=== PATIENT | female | born 1965 | race Caucasian/White ===

== ENCOUNTER 2016-09-28 20:33 | Emergency (ER) | payer SELFPAY ==
[2016-09-28 20:46] VITALS: BP 142/86; BMI 51.2
--- NOTE | 2016-09-28 21:01 | DR.GENAD ---
HPI - PCP Primary Care Physician: oscar - Complaint/Symptoms Chief Complaint:: pt states" i got blisters around my rt eye and in my mouth on the right side also my nose on the right side hurts Sharon been running a fever for 2 days" Self Treatment fo Chief Complaint: tylenol and motrin - Source History Provided: Patient - Mode of Arrival Mode of Arrival: Ambulatory - Timing Onset of Chief Complaint: 09/28/16 PMH - PMH Past Medical History: Yes Past Medical History: COPD, Diabetes, Hypertension Past Surgical History: Yes Surgical History: , Hysterectomy - Family History History of Family Medical Conditions: Yes Family Medical History: Diabetes Mellitus, Cancer, [place], Hypertension - Social History Type of Tobacco Use: Cigarettes Does any household member use tobacco: No Do you use any recreational Drugs:: No Lives With: Family Lives Where: Home - infectious screening In the last 2 months have you had wt loss of >10#?: NO Have you had fever, night sweats or hemotysis?: No Have you traveled outside the country in the last 6 months?: No Isolation: Standard ROS - Review of Systems Constitutional: No Symptoms Reported Eyes: No Symptoms Reported ENTM: No Symptoms Reported Respiratoy: No Symptoms Reported Cardiovascular: No Symptoms Reported Gastrointestinal/Abdominal: No Symptoms Reported Genitourinary: No Symptoms Reported Neurological: No Symptoms Reported Musculoskeletal: No Symptoms Reported Integumentary: No Symptoms Reported Hematologic/Lymphatic: No Symptoms Reported Endocrine: No Symptoms Reported Psychiatric: No Symptoms Reported All Other Systems: Reviewed and Negative PE - Vital Signs Vitals: Temperature 101.1 F Pulse Rate 122 Respiratory Rate 18 Blood Pressure [Left Calf] 91/58 Blood Pressure [Left Arm] 134/68 Blood Pressure [Right Arm] 122/63 Blood Pressure 142/86 O2 Sat by Pulse Oximetry 100 - General Limitations: No Limitations General Appearance: Alert, In No Apparent Distress - Head Head Exam: Normal Inspection, Atraumatic - Eyes Eye exam: Normal Appearance, PERRL, EOMI - ENT ENT Exam: Normal Exam, Normal Oropharynx External Ear Exam: Normal External Inspection TM/Canal Exam: Bilateral Normal Nose Exam: Normal Nose Exam Mouth Exam: Normal Inspection Throat Exam: Normal Inspection - Neck Neck Exam: Normal Inspection - Chest Chest Inspection: Normal Inspection - Respiratory Respiratory Exam: Normal Lung Sounds Bilat Respiratory Exam: Bilateral Clear to Auscultation - Cardiovascular Cardiovascular Exam: Regular Rate, Normal Rhythm - Abdominal Exam Abdominal Exam: Normal Inspection Abdominal Tenderness: negative: RUQ, RLQ, LUQ, LLQ, Epigastrium, Suprapubic, Diffuse, Mild, Moderate, Severe, Other - Extremities Extremities Exam: Normal Inspection - Back Back Exam: Normal Inspection - Neurologic Neurological Exam: Alert, Oriented X3, CN II-XII Intact - Psychiatric Psychiatric Exam: Normal Affect, Normal Mood - Skin Skin Exam: Warm, Dry, Rash (small vesicular type rash on lip lateral aspect of right eye and lower lid edema) - Diagnosis 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
[2016-09-28] MEDS ORDERED: ATIVAN INJ 2 MG VIAL IM ONE (21:30)
[2016-09-28] MEDS ORDERED: ATIVAN INJ 2 MG VIAL ONE (21:32)
== END 2016-09-28 21:51 | disposition home or self-care (01) ==
LOC: ER 20:33
DX: B00.59 Other herpesviral disease of eye (principal)
CPT/HCPCS: 87070; 87880; 96372; 99282; J2060

== ENCOUNTER 2017-01-18 04:58 | Emergency (ER) | payer OTHER, MEDICAID ==
[2017-01-18 05:12] VITALS: BMI 49.8
[2017-01-18] MEDS ORDERED: ZOFRAN INJ 4 MG VIAL IVP ONE (05:15)
[2017-01-18] MEDS ORDERED: DEMEROL INJ IVP ONE (05:15)
--- NOTE | 2017-01-18 05:17 | DR.GENAD ---
HPI - PCP Primary Care Physician: NINA - Complaint/Symptoms Chief Complaint Doctors Comments: Patient states she has multiple hernias and she has not been able to pass anything today with her stomach hurting and swelling for the past two days getting worst tonight. states her last bowel movement was yesterday and she had to take something to make them work then. states she has had a bowel obstruction in the past but did not require surgery. She denies fever, chills, nausea or vomiting, hematuria, marcellus, dysuria. states her pain is 50 of 10. states she is a patient of Dr. Granger and she smokes about a pack a day. She denies alcolhol usage. She has been vomiting most of the day. Chief Complaint:: ABDOMINAL PAIN Self Treatment fo Chief Complaint: OXYCODONE TAKEN BEFORE BED - Nurses notes reviewed Nurses Notes Review: Yes - Source History Provided: Patient - Mode of Arrival Mode of Arrival: Stretcher - Timing Onset of Chief Complaint: 01/16/17 Came on: Gradually - Duration Duration: Constant How lon Duration: Days - Severity Severity: Severe - Modifying Factors Worsens:: nothing Improves:: nothing PMH - PMH Past Medical History: Yes Past Medical History: COPD, Diabetes, Hypertension Past Surgical History: Yes Surgical History: , Hysterectomy - Family History History of Family Medical Conditions: Yes Family Medical History: Diabetes Mellitus, Cancer, [place], Hypertension - Social History Does patient currently use any type of tobacco product: Yes Have you used tobacco products in the last 12 months: Yes Type of Tobacco Use: Cigarettes Does any household member use tobacco: Yes Alcohol Use: None Do you use any recreational Drugs:: No Lives With: Family Lives Where: Home - infectious screening In the last 2 months have you had wt loss of >10#?: NO Have you had fever, night sweats or hemotysis?: No Have you traveled outside the country in the last 6 months?: No Isolation: Standard ROS - Review of Systems Constitutional: No Symptoms Reported, Loss of Appetite Eyes: No Symptoms Reported. negative: See HPI, Eye Pain, Blurred Vision, Tearing, Discharge, Photophobia, Diplopia, Other ENTM: No Symptoms Reported. negative: See HPI, Ear Pain, Ear Discharge, Pulling on Ears, Hearing Loss, Nose Pain, Nose Discharge, Epistaxis, Nose Congestion, Mouth Pain, Mouth Swelling, Loose Teeth, Drooling, Throat Pain, Throat Swelling, Ear Foreign Body Respiratoy: No Symptoms Reported Cardiovascular: No Symptoms Reported. negative: See HPI, Chest Pain, Edema, Palpitations, Syncope, Cyanosis, Skin Mottling, Other Gastrointestinal/Abdominal: No Symptoms Reported, Abdominal Pain, Constipation, Nausea, Vomiting. negative: See HPI, Diarrhea, Food Intolerance, Other Genitourinary: No Symptoms Reported. negative: See HPI, Discharge, Dysuria, Frequency, Hematuria, Pain, Bleeding, Other Neurological: No Symptoms Reported. negative: See HPI, Anxiety, Depressed, Emotional Problems, Headache, Numbness, Paresthesia, Pre-existing Deficit, Seizure, Tingling, Tremors, Weakness, Dizziness, Problems Walking, Speech Problem, Other Musculoskeletal: No Symptoms Reported Integumentary: No Symptoms Reported Hematologic/Lymphatic: No Symptoms Reported Endocrine: No Symptoms Reported Psychiatric: No Symptoms Reported PE - Vital Signs Vitals: Temperature 98.7 F Pulse Rate [Left] 108 Pulse Rate 108 Respiratory Rate 22 Blood Pressure [Left Calf] 91/58 Blood Pressure [Left Arm] 134/68 Blood Pressure [Right Arm] 129/61 Blood Pressure 178/93 O2 Sat by Pulse Oximetry 93 - General Limitations: No Limitations General Appearance: Alert, Anxious, In Distress (moderate to severe), Obese - Head Head Exam: Normal Inspection, Atraumatic, Normocephalic - Eyes Eye exam: Normal Appearance, PERRL, EOMI. negative: Scleral Icterus, Conjunctival Injection, Nystagmus, Miosis, Mydrasis, Periorbital Swelling, Periorbital Tenderness, Other - ENT ENT Exam: Normal Exam, Normal Oropharynx, Normal External Ear Exam, Mucous Membranes Moist, TM's Normal Bilaterally External Ear Exam: Normal External Inspection TM/Canal Exam: Bilateral Normal Nose Exam: Normal Nose Exam Mouth Exam: Normal Inspection Throat Exam: Normal Inspection - Neck Neck Exam: Normal Inspection, Full ROM, Trachea Midline - Chest Chest Inspection: Normal Inspection, Symmetric Chest Wall Rise - Respiratory Respiratory Exam: Normal Lung Sounds Bilat Respiratory Exam: Bilateral Clear to Auscultation - Cardiovascular Cardiovascular Exam: Regular Rate, Normal Rhythm, Normal Heart Sounds - Abdominal Exam Abdominal Exam: Normal Inspection, Normal Bowel Sounds, Distention, Tenderness, Guarding, Dimnished Bowel Sounds, Hypoactive Bowel Sounds, Hernia (umbilical hernia;non reduciable) Abdominal Tenderness: Suprapubic, Severe - Extremities Extremities Exam: Normal Inspection, Full ROM, Normal Capillary Refill. negative: Tenderness, Edema, Joint Swelling, Calf Tenderness, Other - Back Back Exam: Normal Inspection, Full ROM - Neurologic Neurological Exam: Alert, Oriented X3, CN II-XII Intact, Reflexes Normal. negative: Normal Gait (gait not tested) - Psychiatric Psychiatric Exam: Normal Affect, Normal Mood - Skin Skin Exam: Warm, Dry, Intact, Normal Color Course - Consultation Called: 06:36 Call Returned: 06:42 (Dr. Harry to accept in transfere) - Education/Counseling Education/Counseling: Patient Educated On: Treatment, Diagnosis, Needs for Follow Up ROR - Labs Reviewed Laboratory Results Reviewed?: Yes (all labs and x-ray results reviewed and discussed with patient) Result Diagrams: 01/18/17 05:37 01/18/17 05:37 Laboratory: WBC 13.9 X10^3/uL (3.6-10.0) H 01/18/17 05:37 RBC 4.65 X10^6/uL (3.5-5.4) 01/18/17 05:37 Hgb 13.8 g/dL (12.0-16.0) 01/18/17 05:37 Hct 40.7 % (36.0-47.0) 01/18/17 05:37 MCV 87.5 fL (80.0-100.0) 01/18/17 05:37 MCH 29.7 pg (27.0-34.0) 01/18/17 05:37 MCHC 34.0 g/dL (33.0-35.0) 01/18/17 05:37 RDW 15.9 % (11.6-16.5) 01/18/17 05:37 Plt Count 267 X10^3/uL (150.0-450.0) 01/18/17 05:37 MPV 8.4 fL (7.4-11.0) 01/18/17 05:37 Neut % 87.4 % (42.0-75.0) H 01/18/17 05:37 Lymph % 8.1 % (21.0-51.0) L 01/18/17 05:37 [place] % 4.2 % (0.0-13.0) 01/18/17 05:37 Eos % 0.1 % (0.9-2.9) L 01/18/17 05:37 Baso % 0.2 % (0.2-1.0) 01/18/17 05:37 Neut # 12.1 x10^3/uL (2.2-4.8) H 01/18/17 05:37 Lymph # 1.1 X10^3/uL (1.3-2.9) L 01/18/17 05:37 [place] # 0.6 x10^3/uL (0.3-0.8) 01/18/17 05:37 Eos # 0.0 x10^3/uL (0.0-0.2) 01/18/17 05:37 Baso # 0.0 X10^3/uL (0.0-0.1) 01/18/17 05:37 Absolute Nucleated RBC 0.0 /100WBC 01/18/17 05:37 Sodium 133 mmol/L (136-145) L 01/18/17 05:37 Corrected Sodium 136 mmol/L (136-145) 01/18/17 05:37 Potassium 3.4 mmol/L (3.5-5.1) L 01/18/17 05:37 Chloride 92 mmol/L (98-107) L 01/18/17 05:37 Carbon Dioxide 32.2 mmol/L (21-32) H 01/18/17 05:37 BUN 12 mg/dL (7-18) 01/18/17 05:37 Creatinine 1.01 mg/dL (0.55-1.02) 01/18/17 05:37 Est GFR (MDRD) Af Amer > 60 (>60) 01/18/17 05:37 Est GFR (MDRD) Non-Af > 60 (>60) 01/18/17 05:37 Glucose 244 mg/dL (65-99) H 01/18/17 05:37 Calcium 8.6 mg/dL (8.5-10.1) 01/18/17 05:37 Corrected Calcium 9.2 mg/dL (8.5-10.1) 01/18/17 05:37 Total Bilirubin 0.40 mg/dL (0.2-1.0) 01/18/17 05:37 AST 17 Units/L (15-37) 01/18/17 05:37 ALT 25 Units/L (12-78) 01/18/17 05:37 Alkaline Phosphatase 103 Units/L (46-116) 01/18/17 05:37 Total Protein 7.7 g/dL (6.4-8.2) 01/18/17 05:37 Albumin 3.2 g/dL (3.4-5.0) L 01/18/17 05:37 Globulin 4.5 g/dL (2.5-4.5) 01/18/17 05:37 Albumin/Globulin Ratio 0.7 Ratio (1.1-2.1) L 01/18/17 05:37 Amylase 18 Units/L (25-115) L 01/18/17 05:37 - XRAY XRAY Interpreted by: Radiologist (CT abdomen: Moderate to severe mechanical small bowel obstruction w/right paramidline infraunbilical hernia defect representin pont of transition wit incarceration and strangulation not excluded) - Diagnosis Discharge Problem: acute small bowel obstruction, Incarcerated umbilical hernia, Diabetes mellitus , ventral abdominal hernia, Abdominal pain, Mechanical small bowel obstruction - Discharge Plan Disposition: Disch/Tx to Hospital Condition: Stable - Follow ups/Referrals Follow ups/Referrals: Ciaran Granger [Primary Care Provider] - 3 days - Instructions Instructions: Smoking Cessation, Tips for Success, [id number]
[2017-01-18] MEDS ORDERED: ZOFRAN INJ 4 MG VIAL ONE (05:31)
[2017-01-18] MEDS ORDERED: NS 1000 ML 1,000 ML ONE (05:31)
[2017-01-18] MEDS ORDERED: DEMEROL INJ ONE (05:32)
[2017-01-18] MEDS ORDERED: NS 1000 ML 1,000 ML IV SCH (06:00)
[2017-01-18 06:07] LABS: BASOPHILS % (AUTO) 0.2 % (0.2-1.0); EOSINOPHILS % (AUTO) 0.1 % (0.9-2.9); HEMATOCRIT 40.7 % (36.0-47.0); HEMOGLOBIN 13.8 g/dL (12.0-16.0); LYMPHOCYTES # (AUTO) 1.1 X10^3/uL (1.3-2.9); LYMPHOCYTES % (AUTO) 8.1 % (21.0-51.0); MEAN CORPUSCULAR HEMOGLOBIN 29.7 pg (27.0-34.0); MEAN CORPUSCULAR VOLUME 87.5 fL (80.0-100.0); MEAN PLATELET VOLUME 8.4 fL (7.4-11.0); MONOCYTES # (AUTO) 0.6 x10^3/uL (0.3-0.8); MONOCYTES % (AUTO) 4.2 % (0.0-13.0); NEUTROPHILS # (AUTO) 12.1 x10^3/uL (2.2-4.8); NEUTROPHILS % (AUTO) 87.4 % (42.0-75.0); PLATELET COUNT 267 X10^3/uL (150.0-450.0); RED BLOOD COUNT 4.65 X10^6/uL (3.5-5.4); RED CELL DISTRIBUTION WIDTH 15.9 % (11.6-16.5); WHITE BLOOD COUNT 13.9 X10^3/uL (3.6-10.0)
--- NOTE | 2017-01-18 06:08 | CT ---
HISTORY: Abdominal pain, hernia, constipation, vomiting Study: CT abdomen and pelvis without contrast Comparison: July 26, 2016 Technique: Multiple axial, coronal, and sagittal CT images of the abdomen and pelvis were reviewed wi thout contrast. AEC was utilized. Findings: The lung bases are clear. Mild hepatic steatosis is noted. There is a stable left adrenal adenoma. Ri ght renal cortical nephrocalcinosis is noted from previous infarction, infection, or trauma. The silvia maryjane of the solid organs are unremarkable in their noncontrast appearance. There is no pneumoperiton eum. No mesenteric or retroperitoneal lymphadenopathy is identified. There is gastric and diffuse sma ll bowel distention with fluid filling and air-fluid levels leading to a right paramidline infraumbil ical ventral hernia with an additional more cephalad mesenteric fat containing hernia defect also not ed. There is associated surrounding fat stranding and small bowel wall thickening with the distal loo ps of small bowel decompressed most compatible with moderate to severe mechanical small bowel obstruc tion with the hernia defect felt to represent the transition point. The patient is status post hyster ectomy. IMPRESSION: Moderate to severe mechanical small bowel obstruction with a right paramidline infraumbilical hernia defect representing the point of transition with incarceration and strangulation not excluded. Reported By:
[2017-01-18 06:14] LABS: ALANINE AMINOTRANSFERASE 25 Units/L (12-78); ALBUMIN 3.2 g/dL (3.4-5.0); ALKALINE PHOSPHATASE 103 Units/L (46-116); AMYLASE 18 Units/L (25-115); ASPARTATE AMINO TRANSFERASE 17 Units/L (15-37); BLOOD UREA NITROGEN 12 mg/dL (7-18); CALCIUM 8.6 mg/dL (8.5-10.1); CARBON DIOXIDE 32.2 mmol/L (21-32); CHLORIDE 92 mmol/L (98-107); COR CA(FOR HYPOALB) 9.2 mg/dL (8.5-10.1); COR NA(FOR HYPERGLY) 136 mmol/L (136-145); CREATININE 1.01 mg/dL (0.55-1.02); SODIUM 133 mmol/L (136-145); TOTAL PROTEIN 7.7 g/dL (6.4-8.2); eGFR BLACK RACES > 60 (>60); eGFR NON BLACK RACES > 60 (>60)
[2017-01-18 06:26] VITALS: BP 129/61
[2017-01-18 11:52] LABS: LIPASE 59 Units/L (73-393)
== END 2017-01-18 07:50 | disposition hospice, inpatient (51) ==
LOC: ER 04:58
DX: K56.699 Other intestinal obstruction unspecified as to partial versus complete obstruction (principal); K42.0 Umbilical hernia with obstruction, without gangrene; E11.9 Type 2 diabetes mellitus without complications; K43.9 Ventral hernia without obstruction or gangrene; R10.84 Generalized abdominal pain
CPT/HCPCS: 36415; 74176; 80053; 82150; 83690; 85025; 96365; 96367; 96374; 96375; 99284; 99285; A4216; A4222; J2175; J2405

== ENCOUNTER 2017-07-13 00:41 | Emergency (ER) | payer OTHER, MEDICAID ==
[2017-07-13] MEDS ORDERED: ZOFRAN INJ 4 MG VIAL IVP ONE (00:51)
[2017-07-13] MEDS ORDERED: ZOFRAN INJ 4 MG VIAL ONE (00:52)
[2017-07-13 00:53] VITALS: BMI 46.5
--- NOTE | 2017-07-13 01:02 | DR.GENAD ---
HPI - PCP Primary Care Physician: NINA - HPI Comment HPI Comment: WORSE TONIGHT. PAIN SEVERE WITH DIZZINESS. DECRESE HEARING. NO DRAINAGE. NO FEVER. BALANCE IS OFF. - Complaint/Symptoms Chief Complaint Doctors Comments: LEFT EAR PAIN TIMES ONE WEEK. Chief Complaint:: PT C/O LT EAR PAIN FOR ABOUT A WEEK GOTTEN WORSE THIS WEEKEND "I GOT UP TO GO TO BATHROOM MY BALANCE IS OFF I FELL AND HIT MY HEAD I'M HAVING BURNING SHARP PAIN IN MY LT EAR" - Nurses notes reviewed Nurses Notes Review: Yes - Source History Provided: Patient - Mode of Arrival Mode of Arrival: Ambulatory - Timing Onset of Chief Complaint: 07/08/17 Came on: Suddenly - Duration Duration: Constant Duration: Days - Severity Severity: Moderate PMH - PMH Past Medical History: Yes Past Medical History: COPD, Diabetes, Hypertension Past Surgical History: Yes Surgical History: , Hysterectomy - Family History History of Family Medical Conditions: Yes Family Medical History: Diabetes Mellitus, Cancer, [place], Hypertension - Social History Do you use any recreational Drugs:: No Lives With: Family Lives Where: Home - infectious screening In the last 2 months have you had wt loss of >10#?: NO Have you had fever, night sweats or hemotysis?: No Have you traveled outside the country in the last 6 months?: No Isolation: Standard ROS - Review of Systems Constitutional: negative: Chills, Fever Eyes: No Symptoms Reported. negative: Eye Pain, Discharge ENTM: Ear Pain. negative: Hearing Loss (DECREASE HEARING.) Respiratoy: Short of Breath (ON EXERTION.). negative: Productive Cough, Wheezing, Hemoptysis Cardiovascular: negative: Chest Pain Gastrointestinal/Abdominal: negative: Abdominal Pain, Diarrhea, Nausea, Vomiting Genitourinary: negative: Dysuria, Frequency, Hematuria Neurological: Headache, Dizziness Musculoskeletal: Muscle Pain Integumentary: No Symptoms Reported Hematologic/Lymphatic: No Symptoms Reported Endocrine: negative: Flushing, Increased Thirst, Increased Urine All Other Systems: Reviewed and Negative PE - Vital Signs Vitals: Temperature 97.4 F Pulse Rate 102 Respiratory Rate 18 Blood Pressure [Left Calf] 91/58 Blood Pressure [Left Arm] 134/68 Blood Pressure [Right Arm] 129/61 Blood Pressure 122/62 O2 Sat by Pulse Oximetry 95 - General Limitations: No Limitations General Appearance: Alert - Head Head Exam: Normal Inspection - Eyes Eye exam: Normal Appearance - ENT ENT Exam: Normal External Ear Exam. negative: TM's Normal Bilaterally (TM NOT VISUALISE. EAR CANAL SWOLLEN LT EAR.) TM/Canal Exam: Left Canal Tenderness (CANAL SWOLLEN.) Nose Exam: Normal Nose Exam Mouth Exam: Normal Inspection Throat Exam: Normal Inspection - Neck Neck Exam: Trachea Midline - Chest Chest Inspection: Symmetric Chest Wall Rise - Respiratory Respiratory Exam: Normal Lung Sounds Bilat Respiratory Exam: Bilateral Clear to Auscultation - Cardiovascular Cardiovascular Exam: Regular Rate, Normal Rhythm - Abdominal Exam Abdominal Exam: Normal Bowel Sounds, Soft. negative: Tenderness - Extremities Extremities Exam: Edema (TRACE) - Back Back Exam: Normal Inspection - Neurologic Neurological Exam: Alert, Oriented X3 - Psychiatric Psychiatric Exam: Anxious - Skin Skin Exam: Erythema MDM - Differential Diagnosis Differential Diagnosis: LT EARACHE, OTITIS MEDIA, OTITIS EXTERNAL. SINUSITIS Course - Treatment Treatment: SEE ORDERS. - Education/Counseling Education/Counseling: Patient, Education Educated On: Treatment, Diagnosis, Needs for Follow Up ROR - XRAY XRAY Interpreted by: Radiologist XRAY Findings: REPORT DISCUSS WITH PATIENT. - Diagnosis Discharge Problem: Ear pain, left - Discharge Plan Condition: Stable Prescriptions: Amoxicillin & Pot Clavulanate [AUGMENTIN XR tab 1000/62.5mg *] 1 tab PO BID #20 tab Tramadol HCl 50 mg PO Q8H #15 tablet - Follow ups/Referrals Follow ups/Referrals: Ciaran Granger [Primary Care Provider] - 07/13/17 MISTY ARMANDO [REFERRING] - 07/13/17 - Instructions Instructions: Earache, Adult Additional Instructions: RETURN TO ED IF WORSE.
[2017-07-13] MEDS ORDERED: TORADOL 30 MG VIAL IVP ONE (01:09)
[2017-07-13] MEDS ORDERED: TORADOL 30 MG VIAL ONE (01:10)
[2017-07-13] MEDS ORDERED: PHENERGAN INJ 25 MG IM ONE (01:20)
[2017-07-13] MEDS ORDERED: PHENERGAN INJ 25 MG ONE (01:21)
[2017-07-13] MEDS ORDERED: CORTISPORIN OTIC SUSP ONE (01:29)
[2017-07-13] MEDS ORDERED: CORTISPORIN OTIC SUSP AFF EAR ONE (01:30)
[2017-07-13] MEDS ORDERED: SOLU-Medrol 125 MG VIAL IVP ONE (01:48)
[2017-07-13] MEDS ORDERED: SOLU-Medrol 125 MG VIAL ONE (01:50)
[2017-07-13] MEDS ORDERED: DILAUDID INJ IVP PRN (02:01)
[2017-07-13] MEDS ORDERED: DILAUDID INJ ONE (02:03)
--- NOTE | 2017-07-13 02:24 | CT ---
CT head without contrast Indication: Left ear pain and dizziness Comparison: 03/11/2014 CT Technique: Axial images from the skullbase to the vertex without contrast. Coronal and sagittal refor mats provided. Findings: There is no acute intracranial hemorrhage, mass or mass effect. No extra-axial fluid collec tion or abnormal area of hypoattenuation to suggest infarction. Mild atrophic change noted. Empty wen la turcica again noted. Review of bone windows shows no destructive osseous lesion. Paranasal sinuses and mastoid air cells are clear. Impression: 1. No acute intracranial hemorrhage 2. Empty sella turcica again noted. Reported By:
[2017-07-13] MEDS ORDERED: ROCEPHIN 1 GM IV PREMIX 1 GM/50 ML IV.SOLN. IV ONE ×2 (02:28→02:33)
[2017-07-13 03:16] VITALS: BP 128/76
== END 2017-07-13 03:17 | disposition home or self-care (01) ==
LOC: ER 00:41
DX: H92.02 Otalgia, left ear (principal); E23.6 Other disorders of pituitary gland
CPT/HCPCS: 70450; 96365; 96372; 96374; 96375; 99282; 99283; A4222; J0696; J1170; J1885; J2405; J2550; J2930

== ENCOUNTER 2019-04-07 11:07 | Inpatient (IN) ==
[2019-04-07] MEDS ORDERED: NARCAN INJ ONE (11:17)
[2019-04-07] MEDS ORDERED: NS 500 ML IV 500 ML IV ONE ×2 (11:21→11:23)
[2019-04-07] MEDS ORDERED: NARCAN INJ IVP ONE (11:22)
[2019-04-07 11:28] VITALS: BMI 49.8
--- NOTE | 2019-04-07 11:37 | DR.EXTPAIN ---
HPI Time seen Time Seen by Provider: 04/07/19 11:31 PCP Primary Care Physician: DR. WOOD HPI Comment HPI Comment: PATIENT IS 53YR OLD HERE VIA EMS WITH AMS AND PASSIBLE OVERDOSE WITH LORTAB. 40 TABS OF HYDROCODNE MISSING FROM HER BOTTLE. PATIENT SLEEPY IN ER AND RESPOND TO PAINFULL STIMULI. ALERT SLIGHTLY WITH IV NARCAN. SHE IS REPORT GENERALIZED PAIN AFTER HELPING MOM WITH WORK AND ALSO HAVING ARTHRITS PAIN. SHE TOOK ONE LORTAB, ONE XANAX AND ONE SYMBALTA TODAY. NO FEVER OR DYSURIA. HAVING HEADACHE. PAIN 10/. Complaint/Symptoms Chief Complaint Doctor Comments: DRUG OVERDOSE AND AMS. Chief Complaint:: [facility] STATES THEY WERE DISPATCHED TO PATIENT'S RESIDEN CE FOR POSSIBLE OD AND GENERALIZED PAIN. PATIENT STATES SHE WAS HELPING HER MOM DO SOME WORK ON THURSDAY AND THINKS SHE MAY HAVE OVER DONE IT. STATES SHE MAY BE HAVING AN ARHTRITIS FLARE UP. STATES SHE IS HURTING ALL OVER. PER EMS, 40 HYDROCODONE ARE MISSING OUT OF PATIENT'S MEDICIATION BOTTLES. PATIENT STATES SHE ONLY TOOK 1 HYDROCODONE TODAY ALONG WITH XANAX X1 AND CYMBALTA X1. STATES SHE DROPPED THE OTHERS ON THE FLOOR. Nurses notes reviewed Nurses Notes Review: Yes Source History Provided: Patient and EMS Mode of arrival Mode of Arrival: EMS Timing Onset of Chief Complaint: 04/07/19 Context History of: Arthritis Associated signs and symptoms Associated Signs and Symptoms: Weakness, Pain, Abdominal Pain, Headache and Shortness of Breath PMH PMH Past Medical History: Yes Past Medical History: Arthritis, COPD, Diabetes, Dyslipidemia, GERD, Hypertension and Sleep Apnea Past Surgical History: Yes Surgical History: and Hysterectomy Family History History of Family Medical Conditions: Yes Family Medical History: Diabetes Mellitus, Cancer, DC, Coronary Artery Disease and Hypertension Social History Does patient currently use any type of tobacco product: Yes Have you used tobacco products in the last 12 months: Yes Type of Tobacco Use: Cigarettes How many years tobacco product used: 30 Does any household member use tobacco: No Alcohol Use: None Do you use any recreational Drugs:: No Lives With: Mom Lives Where: Home infectious screening In the last 2 months have you had wt loss of >10#?: NO Have you had fever, night sweats or hemotysis?: No Have you traveled outside the country in the last 6 months?: No Isolation: Standard ROS Review of Systems Constitutional: See HPI and Weakness; negative Fever Eyes: No Symptoms Reported and See HPI ENTM: No Symptoms Reported and See HPI Respiratoy: See HPI and Short of Breath; negative Moist Cough and Wheezing Cardiovascular: See HPI and Palpitations Gastrointestinal/Abdominal: See HPI and Abdominal Pain Genitourinary: No Symptoms Reported and See HPI; negative Dysuria, Frequency and Hematuria Neurological: See HPI, Headache and Weakness; negative Dizziness Musculoskeletal: See HPI, Back Pain and Muscle Pain Integumentary: No Symptoms Reported and See HPI; negative Change in Color, Rash and Juandice Hematologic/Lymphatic: No Symptoms Reported and See HPI; negative Easy Bleeding, Easy Bruising and Swollen Glands Endocrine: No Symptoms Reported and See HPI; negative Increased Thirst, Increased Urine and Decreased Appetite Psychiatric: See HPI and Depression All Other Systems: Reviewed and Negative PE Vital Signs Vitals: Temperature 98.7 F Pulse Rate 120 Respiratory Rate 25 Blood Pressure [Left Calf] 91/58 Blood Pressure [Left Arm] 142/82 Blood Pressure 148/66 O2 Sat by Pulse Oximetry 99 General Limitations: Altered Mental Status General Appearance: In No Apparent Distress and Obtunded Head Head Exam: Normal Inspection and Atraumatic Eyes Eye exam: Normal Appearance and PERRL; negative Scleral Icterus and Conjunctival Injection ENT ENT Exam: Normal Exam, Normal Oropharynx, Normal External Ear Exam and TM's Normal Bilaterally Neck Neck Exam: Normal Inspection and Trachea Midline; negative Tenderness and Lymphadenopathy Chest Chest Inspection: Normal Inspection, Symmetric Chest Wall Rise and Rash; negative Tenderness Respiratory Respiratory Exam: Normal Lung Sounds Bilat; negative Accessory Muscle Use, Chest Wall Tenderness and Respiratory Distress Respiratory Exam: Bilateral: Rhonchi and Lower: Rhonchi Cardiovascular Cardiovascular Exam: Tachycardia and Normal Heart Sounds; negative Systolic Murmur and Diastolic Murmur Abdominal Exam Abdominal Exam: Normal Bowel Sounds, Soft and Tenderness Abdominal Tenderness: Diffuse and Mild Extremities Extremities Exam: Normal Inspection and Normal Capillary Refill; negative Tenderness and Calf Tenderness Lower Extremities Gait Exam: Not Tested/Not Observed Back Back Exam: Tenderness and Paraspinal Tenderness (LOWER BACK.) Neurological Neurological Exam: CN II-XII Intact; negative Alert (SLEEPY.), Oriented X3 (ORIENTED TO PERSON.) and Motor Sensory Deficit Psychiatric Psychiatric Exam: Depressed Skin Skin Exam: Dry MDM Differential Diagnosis Differential Diagnosis: Other (DRUG OVERDOSE, AMS. GENERALIZE PAIN) COURSE Treatment Treatment: SEE ORDERS. NARCAN 0.4MG IV. PATIENT MORE ALERT. NS IV. Education/Counseling Education/Counseling: Patient Educated On: Diagnosis ROR Labs Reviewed Laboratory Results Reviewed?: Yes Result Diagrams: 04/12/19 04:26 04/12/19 04:26 Laboratory: 04/07/19 17:33 Blood Blood Culture - Final 04/07/19 17:33 Blood Blood Culture - Final WBC 35.4 X10^3/uL (3.6-10.0) H* 04/07/19 11:50 RBC 3.95 X10^6/uL (3.5-5.4) 04/07/19 11:50 Hgb 11.6 g/dL (12.0-16.0) L 04/07/19 11:50 Hct 35.6 % (36.0-47.0) L 04/07/19 11:50 MCV 90.2 fL (80.0-100.0) 04/07/19 11:50 MCH 29.3 pg (27.0-34.0) 04/07/19 11:50 MCHC 32.5 g/dL (33.0-35.0) L 04/07/19 11:50 RDW 16.9 % (11.6-16.5) H 04/07/19 11:50 Plt Count 283 X10^3/uL (150.0-450.0) 04/07/19 11:50 Plt Count Comment Adequate (ADEQUATE) 04/07/19 11:50 MPV 8.3 fL (7.4-11.0) 04/07/19 11:50 Neut % (Auto) 90.9 % (42.0-75.0) H 04/07/19 11:50 Lymph % (Auto) 5.4 % (21.0-51.0) L 04/07/19 11:50 [place] % (Auto) 3.3 % (0.0-13.0) 04/07/19 11:50 Eos % (Auto) 0.1 % (0.9-2.9) L 04/07/19 11:50 Baso % (Auto) 0.3 % (0.2-1.0) 04/07/19 11:50 Neut # (Auto) 32.2 x10^3/uL (2.2-4.8) H 04/07/19 11:50 Lymph # (Auto) 1.9 X10^3/uL (1.3-2.9) 04/07/19 11:50 [place] # (Auto) 1.2 x10^3/uL (0.3-0.8) H 04/07/19 11:50 Eos # (Auto) 0.0 x10^3/uL (0.0-0.2) 04/07/19 11:50 Baso # (Auto) 0.1 X10^3/uL (0.0-0.1) 04/07/19 11:50 Absolute Nucleated RBC 0.0 /100WBC 04/07/19 11:50 Total Counted 100 04/07/19 11:50 Neutrophils % (Manual) 78 % (39-76) H 04/07/19 11:50 Band Neutrophils % 5 % (0-10) 04/07/19 11:50 Lymphocytes % (Manual) 14 % (13-43) 04/07/19 11:50 Monocytes % (Manual) 3 % (4-9) L 04/07/19 11:50 Plt Morphology Comment Normal (NORMAL) 04/07/19 11:50 RBC Morphology Normal (NORMAL) 04/07/19 11:50 PT 14.6 SECONDS (11.8-14.3) 04/07/19 16:16 INR Target Range - 04/07/19 16:16 INR 1.18 (0.8-1.3) 04/07/19 16:16 Sodium 136 mmol/L (136-145) 04/07/19 16:07 Corrected Sodium 136 mmol/L (136-145) 04/07/19 16:07 Potassium 4.3 mmol/L (3.5-5.1) 04/07/19 16:07 Chloride 97 mmol/L (98-107) L 04/07/19 16:07 Carbon Dioxide 33.6 mmol/L (21-32) H 04/07/19 16:07 BUN 43 mg/dL (7-18) H 04/07/19 16:07 Creatinine 1.25 mg/dL (0.55-1.02) H 04/07/19 16:07 Est GFR (MDRD) Af Amer 57 (>60) L 04/07/19 16:07 Est GFR (MDRD) Non-Af 47 (>60) L 04/07/19 16:07 Glucose 116 mg/dL (65-99) H 04/07/19 16:07 Calcium 8.7 mg/dL (8.5-10.1) 04/07/19 16:07 Corrected Calcium 9.7 mg/dL (8.5-10.1) 04/07/19 16:07 Magnesium 2.0 mg/dL (1.7-2.9) 04/07/19 11:50 Total Bilirubin 0.30 mg/dL (0.2-1.0) 04/07/19 16:07 AST 33 Units/L (15-37) 04/07/19 16:07 ALT 24 Units/L (12-78) 04/07/19 16:07 Alkaline Phosphatase 83 Units/L (46-116) 04/07/19 16:07 Creatine Kinase 476 Units/L (26-192) H 04/07/19 11:50 CK-MB (CK-2) 5.9 ng/mL (0-4.0) H* 04/07/19 11:50 CK/CKMB % Calc 1.2 % (<4) 04/07/19 11:50 Troponin I < 0.02 ng/mL (0-1.5) 04/07/19 11:50 Total Protein 7.8 g/dL (6.4-8.2) 04/07/19 16:07 Albumin 2.8 g/dL (3.4-5.0) L 04/07/19 16:07 Globulin 5.0 g/dL (2.5-4.5) H 04/07/19 16:07 Albumin/Globulin Ratio 0.6 Ratio (1.1-2.1) L 04/07/19 16:07 Specimen Type Catherized urine 04/07/19 14:13 Urine Color Yellow (YELLOW) 04/07/19 14:13 Urine Appearance Cloudy (CLEAR) 04/07/19 14:13 Urine pH 5.0 (5.0 - 8.0) 04/07/19 14:13 Ur Specific [place] 1.020 (1.000-1.030) 04/07/19 14:13 Urine Protein 2+ (NEGATIVE) 04/07/19 14:13 Urine Glucose (UA) Negative (NEGATIVE) 04/07/19 14:13 Urine Ketones Negative (NEGATIVE) 04/07/19 14:13 Urine Occult Blood 1+ (NEGATIVE) 04/07/19 14:13 Urine Nitrite Negative (NEGATIVE) 04/07/19 14:13 Urine Bilirubin Negative (NEGATIVE) 04/07/19 14:13 Urine Urobilinogen Normal (NORMAL) 04/07/19 14:13 Ur Leukocyte Esterase Negative (NEGATIVE) 04/07/19 14:13 Urine RBC 0-2 /HPF (0-3) 04/07/19 14:13 Urine WBC None seen /HPF (0-5) 04/07/19 14:13 Ur Squamous Epith Cells Rare /HPF (NEGATIVE) 04/07/19 14:13 Amorphous Sediment 1+ /HPF (NEGATIVE) 04/07/19 14:13 Urine Bacteria Negative /HPF (NEGATIVE) 04/07/19 14:13 Urine Mucus Few /HPF (NEGATIVE) 04/07/19 14:13 Ur Culture Indicated? No/not indicated 04/07/19 14:13 Salicylates 4.1 mg/dL (2.8-20) 04/07/19 11:50 Urine Opiates Screen Positive (NEG=<300) A 04/07/19 14:13 Urine Methadone Screen Negative (NEG=<300) 04/07/19 14:13 Acetaminophen 0.0 ug/mL (10-30) L 04/07/19 11:50 Ur Barbiturates Screen Negative (NEG=<200) 04/07/19 14:13 Ur Phencyclidine Scrn Negative (NEG=<25) 04/07/19 14:13 Ur Amphetamines Screen Positive (NEG=<1000) A 04/07/19 14:13 U Benzodiazepines Scrn Positive (NEG=<200) A 04/07/19 14:13 Urine Cocaine Screen Negative (NEG=<300) 04/07/19 14:13 U Marijuana (THC) Screen Positive (NEG=<50) A 04/07/19 14:13 Ethyl Alcohol mg/dL < 3 mg/dL (0-19.9) 04/07/19 11:50 XRAY XRAY Interpreted by: Radiologist XRAY Findings: REPORT NOTED AND DISCUSSED WITH PATIENT. Opioid Opioid Risk Tool Personal Hx of Substance Abuse: Prescription Drugs Age (Christiano box if 16-45): No History of Preadolescent Sexual Abuse: No Psychological Disease: Depression Total: 0 Total Score Risk Category: Low Risk Copyright: Babatunde GAMBOA predicting aberrant behaviors Diagnosis Discharge Problem: Generalized weakness AMS (altered mental status) Qualifiers: Altered mental status type: transient alteration of awareness Qualified Code(s): R40.4 - Transient alteration of awareness Acute drug overdose Qualifiers: Encounter type: initial encounter Injury intent: accidental or unintentional Qualified Code(s): T50.901A - Poisoning by unspecified drugs, medicaments and biological substances, accidental (unintentional), initial encounter Leukocytosis Qualifiers: Leukocytosis type: unspecified Qualified Code(s): D72.829 - Elevated white blood cell count, unspecified Instructions Instructions: Confusion Drug Overdose Leukocytosis Hypertension, [id number] Type 1 Diabetes Mellitus, Self Care, Adult, [id number] Forms: Patient Portal
[2019-04-07 11:59] LABS: BASOPHILS # (AUTO) 0.1 X10^3/uL (0.0-0.1); BASOPHILS % (AUTO) 0.3 % (0.2-1.0); EOSINOPHILS % (AUTO) 0.1 % (0.9-2.9); HEMATOCRIT 35.6 % (36.0-47.0); HEMOGLOBIN 11.6 g/dL (12.0-16.0); LYMPHOCYTES # (AUTO) 1.9 X10^3/uL (1.3-2.9); LYMPHOCYTES % (AUTO) 5.4 % (21.0-51.0); MEAN CORPUSCULAR HEMOGLOBIN 29.3 pg (27.0-34.0); MEAN CORPUSCULAR HGB CONC 32.5 g/dL (33.0-35.0); MEAN CORPUSCULAR VOLUME 90.2 fL (80.0-100.0); MEAN PLATELET VOLUME 8.3 fL (7.4-11.0); MONOCYTES # (AUTO) 1.2 x10^3/uL (0.3-0.8); MONOCYTES % (AUTO) 3.3 % (0.0-13.0); NEUTROPHILS # (AUTO) 32.2 x10^3/uL (2.2-4.8); NEUTROPHILS % (AUTO) 90.9 % (42.0-75.0); PLATELET COUNT 283 X10^3/uL (150.0-450.0); RED BLOOD COUNT 3.95 X10^6/uL (3.5-5.4); RED CELL DISTRIBUTION WIDTH 16.9 % (11.6-16.5)
[2019-04-07 12:11] LABS: WHITE BLOOD COUNT 35.4 X10^3/uL (3.6-10.0)
[2019-04-07 12:12] LABS: BLOOD UREA NITROGEN 50 mg/dL (7-18); CALCIUM 8.9 mg/dL (8.5-10.1); CARBON DIOXIDE 30.6 mmol/L (21-32); CHLORIDE 97 mmol/L (98-107); COR NA(FOR HYPERGLY) 136 mmol/L (136-145); CREATININE 1.81 mg/dL (0.55-1.02); SODIUM 135 mmol/L (136-145); TROPONIN I < 0.02 ng/mL (0-1.5); eGFR NON BLACK RACES 31 (>60)
[2019-04-07 12:14] LABS: BAND NEUTROPHILS % 5 % (0-10); PLATELET MORPHOLOGY COMMENT NORMAL (NORMAL)
[2019-04-07 12:15] LABS: SALICYLATE 4.1 mg/dL (2.8-20)
[2019-04-07 12:35] LABS: ALANINE AMINOTRANSFERASE 22 Units/L (12-78); ALBUMIN 2.8 g/dL (3.4-5.0); ALKALINE PHOSPHATASE 79 Units/L (46-116); ASPARTATE AMINO TRANSFERASE 30 Units/L (15-37); BLOOD ALCOHOL < 3 mg/dL (0-19.9); CKMB % 1.2 % (<4); COR CA(FOR HYPOALB) 9.9 mg/dL (8.5-10.1); CREATINE KINASE 476 Units/L (26-192); TOTAL PROTEIN 7.5 g/dL (6.4-8.2)
[2019-04-07 12:37] LABS: CREATINE KINASE MB 5.9 ng/mL (0-4.0)
[2019-04-07 14:22] LABS: BILIRUBIN,URINE NEGATIVE (NEGATIVE); BLOOD/HEMOGLOBIN,URINE 1+ (NEGATIVE); GLUCOSE, URINE NEGATIVE (NEGATIVE); KETONES,URINE NEGATIVE (NEGATIVE); LEUKOCYTE ESTERASE ,URINE NEGATIVE (NEGATIVE); NITRITES,URINE NEGATIVE (NEGATIVE); PROTEIN,URINE 2+ (NEGATIVE); UROBILINOGEN,URINE NORMAL (NORMAL)
[2019-04-07 14:36] LABS: APPEARANCE,URINE CLOUDY (CLEAR); COLOR,URINE YELLOW (YELLOW)
[2019-04-07 14:37] LABS: AMORPHOUS SEDIMENT,UR 1+ /HPF (NEGATIVE); BACTERIA,URINE NEGATIVE /HPF (NEGATIVE); MUCUS,URINE FEW /HPF (NEGATIVE); RBC,URINE 0-2 /HPF (0-3); SQUAMOUS EPITHELIAL CELL,UR RARE /HPF (NEGATIVE)
--- NOTE | 2019-04-07 15:39 | CT ---
HISTORYAMSSTUDYBRAIN W/O [id number] images of the head were obtained without IV contrast. Automatic exposure control was utilized.FINDINGSThere is generalized age-appropriate cortical involution with concomitant ventricular and sulcal enlargement. Chronically empty sella is again noted. There is no acute bleed, mass effect, or abnormal extra-axial collection. No acute osseous abnormality. The paranasal sinuses and mastoid air cells are grossly clear.IMPRESSIONNo acute intracranial abnormality.Electronically signed by: KIN MEYERS (Apr 07, 2019 15:38:11)
--- NOTE | 2019-04-07 15:45 | CT ---
HISTORYABD PAINSTUDYABDOMEN/PELVIS W/O [id number] axial images of the abdomen and pelvis were obtained from the lung bases to the pubic symphysis without the administration of IV contrast. Dose reduction techniques including Automated Exposure Control (AEC) and adjustment of mA and kV were utilized.FINDINGSThere is small to moderate layering right-sided pleural effusion. There is subsegmental atelectasis in both lung bases. No acute osseous abnormality.The study is limited by suboptimal patient positioning, resulting in exclusion of a portion of the right-sided abdominal wall from the field of view. Additionally, evaluation of the abdominal pelvic viscera is markedly limited without contrast and there is beam hardening artifact within the upper abdomen related to the patient's arms. Accounting for this, the liver, gallbladder, spleen, stomach, pancreas, adrenals, and kidneys demonstrate no significant abnormality. There is a stable left adrenal nodule suggestive for an adenoma and a stable small cortical calcification of the right kidney.There is bowel containing large lower abdominal wall hernia. No marked thickening or dilatation of the lower GI tract is identified. There is aortoiliac atherosclerosis, without aneurysm. The urinary bladder is collapsed around a Tovar catheter. The uterus is absent. The rectum is unremarkable.IMPRESSIONNo acute abnormality within the abdomen or pelvis, within noncontrast limitations as above.Small to moderate right-sided pleural effusion. Subsegmental atelectasis of the lung bases.Chronic findings as above.Electronically signed by: KIN MEYERS (Apr 07, 2019 15:44:20)
--- NOTE | 2019-04-07 15:51 | RAD ---
HISTORYCHEST PAINSTUDYCHEST, 1 [id number] trachea is shifted to the right. Heart size enlarged. Dense consolidation within the central right upper midlung with right lung volume loss. Patchy opacities noted within both lung bases. Small to moderate right-sided pleural effusion has developed. No pneumothorax. No acute osseous abnormality.IMPRESSIONRight lung volume loss with dense consolidation within central right upper and middle lobe with development of a small to moderate right-sided pleural effusion may represent pneumonia with postobstructive atelectasis; however, is suspicious for a central neoplasm with postobstructive atelectasis. Correlation with CT examination necessitating IV contrast given the concern for central hilar/bronchogenic malignancy is recommended.Electronically signed by: MIK DUVALL (Apr 07, 2019 15:49:58)
[2019-04-07 16:27] LABS: ALBUMIN 2.8 g/dL (3.4-5.0); CALCIUM 8.7 mg/dL (8.5-10.1); CARBON DIOXIDE 33.6 mmol/L (21-32); COR CA(FOR HYPOALB) 9.7 mg/dL (8.5-10.1); CREATININE 1.25 mg/dL (0.55-1.02); TOTAL PROTEIN 7.8 g/dL (6.4-8.2)
[2019-04-07] MEDS ORDERED: SALINE 3% 15 ML NEB TX ONE (17:23)
[2019-04-07] MEDS ORDERED: SALINE 3% 15 ML NEB TX NEB ONE (17:51)
[2019-04-07] MEDS ORDERED: XOPENEX 1.25 MG/3 ML NEBULE NEB PRN (18:28)
[2019-04-07] MEDS ORDERED: NS 1000 ML 1,000 ML ONE (18:29)
[2019-04-07] MEDS: NS 1000 ML 1,000 ML IV SCH (18:30)
[2019-04-07] MEDS: PEPCID TAB 20 MG PO SCH (20:20)
[2019-04-07] MEDS: LIPITOR TAB 10 MG PO SCH (20:30)
[2019-04-07] MEDS ORDERED: PROCHLORPERAZINE MALEATE 5 MG PO SCH (21:00)
[2019-04-07 23:21] LABS: CKMB % 0.8 % (<4); CREATINE KINASE 456 Units/L (26-192); CREATINE KINASE MB 3.7 ng/mL (0-4.0); TROPONIN I < 0.02 ng/mL (0-1.5)
[2019-04-08] MEDS ORDERED: TYLENOL 325 MG TAB PO ONE (01:16)
[2019-04-08] MEDS: TYLENOL 325 MG TAB PO PRN ×2 (01:30→07:47)
[2019-04-08 06:11] LABS: BASOPHILS % (AUTO) 0.2 % (0.2-1.0); EOSINOPHILS % (AUTO) 0.2 % (0.9-2.9); HEMATOCRIT 33.5 % (36.0-47.0); HEMOGLOBIN 10.9 g/dL (12.0-16.0); LYMPHOCYTES % (AUTO) 9.9 % (21.0-51.0); MEAN CORPUSCULAR HEMOGLOBIN 29.3 pg (27.0-34.0); MEAN CORPUSCULAR HGB CONC 32.4 g/dL (33.0-35.0); MEAN CORPUSCULAR VOLUME 90.4 fL (80.0-100.0); MEAN PLATELET VOLUME 8.5 fL (7.4-11.0); MONOCYTES # (AUTO) 0.9 x10^3/uL (0.3-0.8); MONOCYTES % (AUTO) 4.7 % (0.0-13.0); NEUTROPHILS # (AUTO) 17.2 x10^3/uL (2.2-4.8); PLATELET COUNT 254 X10^3/uL (150.0-450.0); RED CELL DISTRIBUTION WIDTH 16.9 % (11.6-16.5); WHITE BLOOD COUNT 20.2 X10^3/uL (3.6-10.0)
[2019-04-08 06:25] LABS: ALANINE AMINOTRANSFERASE 20 Units/L (12-78); ALBUMIN 2.5 g/dL (3.4-5.0); ALKALINE PHOSPHATASE 69 Units/L (46-116); ASPARTATE AMINO TRANSFERASE 31 Units/L (15-37); BLOOD UREA NITROGEN 22 mg/dL (7-18); CALCIUM 8.6 mg/dL (8.5-10.1); CARBON DIOXIDE 32.4 mmol/L (21-32); CHLORIDE 99 mmol/L (98-107); CKMB % 0.6 % (<4); COR CA(FOR HYPOALB) 9.8 mg/dL (8.5-10.1); CREATINE KINASE 380 Units/L (26-192); CREATINE KINASE MB 2.2 ng/mL (0-4.0); CREATININE 0.65 mg/dL (0.55-1.02); SODIUM 137 mmol/L (136-145); TOTAL PROTEIN 7.2 g/dL (6.4-8.2); TROPONIN I < 0.02 ng/mL (0-1.5); eGFR NON BLACK RACES > 60 (>60)
--- NOTE | 2019-04-08 08:24 | DR.H&P ---
H&P - History & Physical for Day of: H&P Date: 04/07/19 - Chief Complaint Chief Complaint: [facility] STATES THEY WERE DISPATCHED TO PATIENT'S RESIDENCE FOR POSSIBLE OD AND GENERALIZED PAIN. PATIENT STATES SHE WAS HELPING HER MOM DO SOME WORK ON THURSDAY AND THINKS SHE MAY HAVE OVER DONE IT. STATES SHE MAY BE HAVING AN ARHTRITIS FLARE UP. STATES SHE IS HURTING ALL OVER. PER EMS, 40 HYDROCODONE ARE MISSING OUT OF PATIENT'S MEDICIATION BOTTLES. PATIENT STATES SHE ONLY TOOK 1 HYDROCODONE TODAY ALONG WITH XANAX X1 AND CYMBALTA X1. STATES SHE DROPPED THE OTHERS ON THE FLOOR. - History of Present Illness History of Present Illness: 53 WF ER ADMISSION WITH AMS DUE TO SUSPECTED ACCIDENTAL MEDICATION OVERDOSE. PT ADMITTED TO ICU FOR TREATMENT OF ACUTE ILLNESS, PNEUMONIA. - Past Medical History Past Medical History: Hypertension, Dyslipidemia, Diabetes, COPD, GERD, Arthritis, Sleep Apnea Additional Medical History: Rheumatoid Arthritis, Diverticulitis, Intestinal fistula, Tobacco abuse, Obesity, Drug Dependency - Past Surgical History Surgical History: , Hysterectomy Additional Surgical History: Tubal Ligation, Ovarian Cyst Removal, Hernia repair, Abdominal wall sinus - debridement - Family History Family Medical History: Diabetes Mellitus, Coronary Artery Disease, Hypertension - Social History Does patient currently use any type of tobacco product: Yes Have you used tobacco products in the last 12 months: Yes Type of Tobacco Use: Cigarettes How many years tobacco product used: 30 Does any household member use tobacco: No Alcohol Use: None Drug Use: Prescription Drugs, Marijuana - Medications Home Medications: Sulfa (Sulfonamide Antibiotics) Allergy (Verified 02/11/19 10:56) codeine Adverse Reaction (Verified 02/11/19 10:56) CONTINUE taking the following medications hydrocodone-acetaminophen 1 tab PO BID PRN 04/07/19 [History] meloxicam 15 mg PO DAILY 04/07/19 [History] prochlorperazine maleate 5 mg PO BID 04/07/19 [History] sertraline 25 mg PO DAILY 04/07/19 [History] - Review of Systems Constitutional: Weakness Eyes: No Symptoms Reported ENT: No Symptoms Reported Cardiovascular: No Symptoms Reported Gastrointestinal: Nausea Musculoskeletal: Back Pain Skin: No Symptoms Reported Neurological: Weakness - Physical Exam Vital Signs: Temperature 99.1 F Pulse Rate [Apical] 115 Pulse Rate 87 Respiratory Rate 26 Blood Pressure [Right Arm] 111/65 Blood Pressure [Left Calf] 91/58 Blood Pressure [Left Arm] 142/82 Blood Pressure 117/67 O2 Sat by Pulse Oximetry 95 Oriented: Person Eyes: Normal Ear: Normal Nose: Normal Throat: Normal Respiratory: Rhonchi Throughout, Wheezes Throughout Cardiovascular: Murmur : Normal Auscultation: Bowel Sounds: Normal Tenderness: Normal Skin: Normal Musculoskeletal: Normal Psychiatric: Normal Mood Description: Anxious Affect: Anxious Speech Pattern: Appropriate - Assessment/Plan (1) AMS (altered mental status) Status: Acute Plan: PT ADMITTED ICU, PNEUMONIA PROTOCOL. IV ATBX, BLOOD CULTURES. GENTLE IV HYDRATION, CXR Q AM. SPUTUM CULTURES, CONTINOUS SUPPLEMENTAL O2. PULMONARY TOILETING, CONTINUOUS WRAP CHECKER (2) Pneumonia Status: Acute (3) COPD (chronic obstructive pulmonary disease) Qualifiers: COPD type: unspecified COPD Qualified Code(s): J44.9 - Chronic obstructive pulmonary disease, unspecified Status: Acute (4) COPD (chronic obstructive pulmonary disease) Status: Chronic (5) Diabetes Status: Chronic (6) GERD (gastroesophageal reflux disease) Status: Chronic (7) Hypertension Status: Chronic - Allergies Allergies/Adverse Reactions: Allergies Allergy/AdvReac Type Severity Reaction Status Date / Time Sulfa (Sulfonamide Allergy Verified 02/11/19 10:56 Antibiotics) codeine AdvReac Verified 02/11/19 10:56
[2019-04-08] MEDS: LEVAQUIN PREMIX IV 750 MG 750 MG/150 ML BAG IV SCH (09:24)
[2019-04-08] MEDS: CYMBALTA PO SCH (09:25)
[2019-04-08] MEDS: ROBITUSSIN DM PO SCH ×4 (09:25→20:37)
[2019-04-08] MEDS: PEPCID TAB 20 MG PO SCH ×2 (09:25→20:37)
[2019-04-08] MEDS: FOLIC ACID TAB 1 MG PO SCH (09:26)
[2019-04-08] MEDS: ZOLOFT PO SCH (09:27)
[2019-04-08] MEDS: PriLOSEC PO SCH (09:27)
[2019-04-08] MEDS: COMPAZINE PO SCH ×2 (09:27→20:36)
[2019-04-08] MEDS: NS 1000 ML 1,000 ML IV SCH ×2 (09:36→14:19)
[2019-04-08] MEDS: LOVENOX INJ 40 MG SYR SC SCH (12:42)
[2019-04-08] MEDS: NICOTINE PATCH TD SCH (14:19)
[2019-04-08] MEDS: ULTRAM PO SCH ×2 (15:04→20:37)
[2019-04-08] MEDS: XANAX PO PRN ×2 (15:04→20:36)
[2019-04-08] MEDS: XOPENEX 1.25 MG/3 ML NEBULE NEB SCH (16:35)
[2019-04-08] MEDS: LIPITOR TAB 10 MG PO SCH (20:37)
[2019-04-08] MEDS ORDERED: NEURONTIN CAP 400 MG PO ONE ×2 (21:51→22:04)
[2019-04-09] MEDS: PULMICORT NEB TX 0.5 MG NEB SCH ×2 (02:44→09:43)
[2019-04-09] MEDS: XOPENEX 1.25 MG/3 ML NEBULE NEB SCH ×4 (02:45→17:29)
[2019-04-09 05:03] LABS: BASOPHILS # (AUTO) 0.1 X10^3/uL (0.0-0.1); BASOPHILS % (AUTO) 0.7 % (0.2-1.0); EOSINOPHILS # (AUTO) 0.1 x10^3/uL (0.0-0.2); EOSINOPHILS % (AUTO) 0.6 % (0.9-2.9); HEMATOCRIT 35.1 % (36.0-47.0); HEMOGLOBIN 11.4 g/dL (12.0-16.0); LYMPHOCYTES % (AUTO) 15.4 % (21.0-51.0); MEAN CORPUSCULAR HEMOGLOBIN 29.3 pg (27.0-34.0); MEAN CORPUSCULAR HGB CONC 32.4 g/dL (33.0-35.0); MEAN CORPUSCULAR VOLUME 90.4 fL (80.0-100.0); MEAN PLATELET VOLUME 8.4 fL (7.4-11.0); MONOCYTES # (AUTO) 0.6 x10^3/uL (0.3-0.8); MONOCYTES % (AUTO) 4.9 % (0.0-13.0); NEUTROPHILS # (AUTO) 10.2 x10^3/uL (2.2-4.8); NEUTROPHILS % (AUTO) 78.4 % (42.0-75.0); PLATELET COUNT 279 X10^3/uL (150.0-450.0); RED BLOOD COUNT 3.88 X10^6/uL (3.5-5.4); RED CELL DISTRIBUTION WIDTH 16.4 % (11.6-16.5)
[2019-04-09 05:14] LABS: ALANINE AMINOTRANSFERASE 25 Units/L (12-78); ALBUMIN 2.4 g/dL (3.4-5.0); ALKALINE PHOSPHATASE 75 Units/L (46-116); ASPARTATE AMINO TRANSFERASE 29 Units/L (15-37); BLOOD UREA NITROGEN 12 mg/dL (7-18); CALCIUM 8.5 mg/dL (8.5-10.1); CHLORIDE 100 mmol/L (98-107); COR CA(FOR HYPOALB) 9.8 mg/dL (8.5-10.1); COR NA(FOR HYPERGLY) 138 mmol/L (136-145); CREATININE 0.67 mg/dL (0.55-1.02); SODIUM 137 mmol/L (136-145); TOTAL PROTEIN 7.4 g/dL (6.4-8.2); eGFR NON BLACK RACES > 60 (>60)
--- NOTE | 2019-04-09 08:14 | PCM.PROG ---
Progress Note Progress Note for Day of Date of Exam: 04/09/19 Subjective Subjective: Pt is a 53 yo f admitted for possible overdose (d/t altered mental status) and pneumonia. Her AMS has since resolved, she is alert and oriented, has been restarted on lower dose home pain medication. BP stable, she is on 3L nc, will titrate down. She is being treated for mild rhabdo with her CK trending down. She is receiving IV Levaquin for pneumonia, sputum culture prelim positive H. influenzae. Her echo yesterday to evaluate for murmur pEF 56%, mod LVH, and mod LA dilation. Initial CXR questionable abnormality along with findings of pneumonia. Will order CT chest for further evaluation. Past Medical Family Social History Past Med/Fam/Surg Hx: No changes since H&P Allergies: Allergies Sulfa (Sulfonamide Antibiotics) Allergy (Verified 02/11/19 10:56) codeine Adverse Reaction (Verified 02/11/19 10:56) Review of Systems ROS: No change since H&P Vital Signs and I&O's Vital Signs: Temperature 98.1 F Pulse Rate [Apical] 115 Pulse Rate 82 Respiratory Rate 24 Blood Pressure [Right Arm] 111/65 Blood Pressure [Left Calf] 91/58 Blood Pressure [Left Arm] 142/82 Blood Pressure 165/78 O2 Sat by Pulse Oximetry 95 Intake and Output: Intake & Output 04/06/19 04/07/19 04/08/19 04/09/19 23:59 23:59 23:59 23:59 Intake Total 754 / 754 2763 / 2763 250 / 250 Output Total 3000 / 3000 2600 / 2600 1100 / 1100 Balance -2246 / -2246 163 / 163 -850 / -850 Physical Exam Oriented: Person Eyes: Normal Ear: Normal Nose: Normal Throat: Normal Respiratory: Diminished Cardiovascular: Murmur : Normal Auscultation: Bowel Sounds: Normal Tenderness: Normal Skin: Normal Musculoskeletal: Normal Psychiatric: Normal Mood Description: Calm Affect: Anxious Speech Pattern: Clear and Appropriate Laboratory and Diagnostics Result Diagrams: 04/09/19 04:31 04/09/19 04:31 Labs: 04/07/19 18:10 Sputum - Expectorated Sputum Sputum Culture - Preliminary 04/07/19 18:10 Sputum - Expectorated Sputum - Final 04/07/19 17:33 Blood Blood Culture - Preliminary 04/07/19 17:33 Blood Blood Culture - Preliminary Laboratory WBC 13.0 X10^3/uL (3.6-10.0) H 04/09/19 04:31 RBC 3.88 X10^6/uL (3.5-5.4) 04/09/19 04:31 Hgb 11.4 g/dL (12.0-16.0) L 04/09/19 04:31 Hct 35.1 % (36.0-47.0) L 04/09/19 04:31 MCV 90.4 fL (80.0-100.0) 04/09/19 04:31 MCH 29.3 pg (27.0-34.0) 04/09/19 04:31 MCHC 32.4 g/dL (33.0-35.0) L 04/09/19 04:31 RDW 16.4 % (11.6-16.5) 04/09/19 04:31 Plt Count 279 X10^3/uL (150.0-450.0) 04/09/19 04:31 Plt Count Comment Adequate (ADEQUATE) 04/07/19 11:50 MPV 8.4 fL (7.4-11.0) 04/09/19 04:31 Neut % (Auto) 78.4 % (42.0-75.0) H 04/09/19 04:31 Lymph % (Auto) 15.4 % (21.0-51.0) L 04/09/19 04:31 [place] % (Auto) 4.9 % (0.0-13.0) 04/09/19 04:31 Eos % (Auto) 0.6 % (0.9-2.9) L 04/09/19 04:31 Baso % (Auto) 0.7 % (0.2-1.0) 04/09/19 04:31 Neut # (Auto) 10.2 x10^3/uL (2.2-4.8) H 04/09/19 04:31 Lymph # (Auto) 2.0 X10^3/uL (1.3-2.9) 04/09/19 04:31 [place] # (Auto) 0.6 x10^3/uL (0.3-0.8) 04/09/19 04:31 Eos # (Auto) 0.1 x10^3/uL (0.0-0.2) 04/09/19 04:31 Baso # (Auto) 0.1 X10^3/uL (0.0-0.1) 04/09/19 04:31 Absolute Nucleated RBC 0.0 /100WBC 04/09/19 04:31 Total Counted 100 04/07/19 11:50 Neutrophils % (Manual) 78 % (39-76) H 04/07/19 11:50 Band Neutrophils % 5 % (0-10) 04/07/19 11:50 Lymphocytes % (Manual) 14 % (13-43) 04/07/19 11:50 Monocytes % (Manual) 3 % (4-9) L 04/07/19 11:50 Plt Morphology Comment Normal (NORMAL) 04/07/19 11:50 RBC Morphology Normal (NORMAL) 04/07/19 11:50 PT 14.6 SECONDS (11.8-14.3) 04/07/19 16:16 INR Target Range - 04/07/19 16:16 INR 1.18 (0.8-1.3) 04/07/19 16:16 Sodium 137 mmol/L (136-145) 04/09/19 04:31 Corrected Sodium 138 mmol/L (136-145) 04/09/19 04:31 Potassium 3.8 mmol/L (3.5-5.1) 04/09/19 04:31 Chloride 100 mmol/L (98-107) 04/09/19 04:31 Carbon Dioxide 31.0 mmol/L (21-32) 04/09/19 04:31 BUN 12 mg/dL (7-18) 04/09/19 04:31 Creatinine 0.67 mg/dL (0.55-1.02) 04/09/19 04:31 Est GFR (MDRD) Af Amer > 60 (>60) 04/09/19 04:31 Est GFR (MDRD) Non-Af > 60 (>60) 04/09/19 04:31 Glucose 161 mg/dL (65-99) H 04/09/19 04:31 POC Glucose (mg/dL) 138 mg/dL (65-99) H 04/09/19 05:34 Calcium 8.5 mg/dL (8.5-10.1) 04/09/19 04:31 Corrected Calcium 9.8 mg/dL (8.5-10.1) 04/09/19 04:31 Magnesium 2.0 mg/dL (1.7-2.9) 04/07/19 11:50 Total Bilirubin 0.40 mg/dL (0.2-1.0) 04/09/19 04:31 AST 29 Units/L (15-37) 04/09/19 04:31 ALT 25 Units/L (12-78) 04/09/19 04:31 Alkaline Phosphatase 75 Units/L (46-116) 04/09/19 04:31 Creatine Kinase 380 Units/L (26-192) H 04/08/19 05:18 CK-MB (CK-2) 2.2 ng/mL (0-4.0) 04/08/19 05:18 CK/CKMB % Calc 0.6 % (<4) 04/08/19 05:18 Troponin I < 0.02 ng/mL (0-1.5) 04/08/19 05:18 Total Protein 7.4 g/dL (6.4-8.2) 04/09/19 04:31 Albumin 2.4 g/dL (3.4-5.0) L 04/09/19 04:31 Globulin 5.0 g/dL (2.5-4.5) H 04/09/19 04:31 Albumin/Globulin Ratio 0.5 Ratio (1.1-2.1) L 04/09/19 04:31 Specimen Type Catherized urine 04/07/19 14:13 Urine Color Yellow (YELLOW) 04/07/19 14:13 Urine Appearance Cloudy (CLEAR) 04/07/19 14:13 Urine pH 5.0 (5.0 - 8.0) 04/07/19 14:13 Ur Specific [place] 1.020 (1.000-1.030) 04/07/19 14:13 Urine Protein 2+ (NEGATIVE) 04/07/19 14:13 Urine Glucose (UA) Negative (NEGATIVE) 04/07/19 14:13 Urine Ketones Negative (NEGATIVE) 04/07/19 14:13 Urine Occult Blood 1+ (NEGATIVE) 04/07/19 14:13 Urine Nitrite Negative (NEGATIVE) 04/07/19 14:13 Urine Bilirubin Negative (NEGATIVE) 04/07/19 14:13 Urine Urobilinogen Normal (NORMAL) 04/07/19 14:13 Ur Leukocyte Esterase Negative (NEGATIVE) 04/07/19 14:13 Urine RBC 0-2 /HPF (0-3) 04/07/19 14:13 Urine WBC None seen /HPF (0-5) 04/07/19 14:13 Ur Squamous Epith Cells Rare /HPF (NEGATIVE) 04/07/19 14:13 Amorphous Sediment 1+ /HPF (NEGATIVE) 04/07/19 14:13 Urine Bacteria Negative /HPF (NEGATIVE) 04/07/19 14:13 Urine Mucus Few /HPF (NEGATIVE) 04/07/19 14:13 Ur Culture Indicated? No/not indicated 04/07/19 14:13 Salicylates 4.1 mg/dL (2.8-20) 04/07/19 11:50 Urine Opiates Screen Positive (NEG=<300) A 04/07/19 14:13 Urine Methadone Screen Negative (NEG=<300) 04/07/19 14:13 Acetaminophen 0.0 ug/mL (10-30) L 04/07/19 11:50 Ur Barbiturates Screen Negative (NEG=<200) 04/07/19 14:13 Ur Phencyclidine Scrn Negative (NEG=<25) 04/07/19 14:13 Ur Amphetamines Screen Positive (NEG=<1000) A 04/07/19 14:13 U Benzodiazepines Scrn Positive (NEG=<200) A 04/07/19 14:13 Urine Cocaine Screen Negative (NEG=<300) 04/07/19 14:13 U Marijuana (THC) Screen Positive (NEG=<50) A 04/07/19 14:13 Ethyl Alcohol mg/dL < 3 mg/dL (0-19.9) 04/07/19 11:50 Plan (1) AMS (altered mental status): Status: Acute Plan: PT ADMITTED ICU, PNEUMONIA PROTOCOL IV ATBX, BLOOD CULTURES GENTLE IV HYDRATION, CXR Q AM SPUTUM CULTURES, CONTINOUS SUPPLEMENTAL O2 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
[2019-04-09] MEDS ORDERED: METHOTREXATE PO SCH (09:00)
[2019-04-09] MEDS ORDERED: LISINOPRIL HYDROCHLOROTHIAZIDE PO SCH (10:10)
[2019-04-09] MEDS: LEVAQUIN PREMIX IV 750 MG 750 MG/150 ML BAG IV SCH (10:23)
[2019-04-09] MEDS: XANAX PO PRN ×2 (10:24→18:05)
[2019-04-09] MEDS: COMPAZINE PO SCH ×2 (10:24→20:35)
[2019-04-09] MEDS: ROBITUSSIN DM PO SCH ×5 (10:24→20:36)
[2019-04-09] MEDS: FOLIC ACID TAB 1 MG PO SCH (10:25)
[2019-04-09] MEDS: ULTRAM PO SCH (10:25)
[2019-04-09] MEDS: LOVENOX INJ 40 MG SYR SC SCH (10:27)
[2019-04-09] MEDS: ZOLOFT PO SCH (10:35)
[2019-04-09] MEDS: PEPCID TAB 20 MG PO SCH ×2 (10:35→20:35)
[2019-04-09] MEDS: NICOTINE PATCH TD SCH (10:36)
[2019-04-09] MEDS: CYMBALTA PO SCH (10:40)
[2019-04-09] MEDS: PriLOSEC PO SCH (10:45)
[2019-04-09] MEDS: NEURONTIN CAP 300 MG PO SCH ×2 (11:01→20:34)
[2019-04-09] MEDS: HYDROCHLOROTHIAZIDE 12.5 MG CAP PO SCH (11:01)
[2019-04-09] MEDS ORDERED: ZESTRIL TAB 20 MG ONE (11:05)
[2019-04-09] MEDS: ZESTRIL TAB 20 MG PO SCH (11:50)
[2019-04-09] MEDS ORDERED: ULTRAM PO ONE (15:09)
[2019-04-09] MEDS ORDERED: ULTRAM ONE (15:11)
[2019-04-09] MEDS ORDERED: TORADOL 30 MG VIAL ONE (16:45)
[2019-04-09] MEDS: TORADOL 30 MG VIAL IM ONE ×2 (16:46→17:43)
[2019-04-09] MEDS: LIPITOR TAB 10 MG PO SCH (20:34)
[2019-04-09] MEDS: NS 1000 ML 1,000 ML IV SCH (20:34)
[2019-04-09] MEDS: ULTRAM PO PRN (20:35)
[2019-04-10] MEDS: XANAX PO PRN ×4 (00:49→20:17)
[2019-04-10] MEDS: TYLENOL 325 MG TAB PO PRN ×4 (00:50→21:58)
[2019-04-10] MEDS: PULMICORT NEB TX 0.5 MG NEB SCH ×2 (02:28→09:42)
[2019-04-10] MEDS: XOPENEX 1.25 MG/3 ML NEBULE NEB SCH ×4 (02:28→17:17)
[2019-04-10] MEDS: ULTRAM PO PRN ×2 (03:36→10:26)
[2019-04-10 05:20] LABS: BASOPHILS # (AUTO) 0.1 X10^3/uL (0.0-0.1); BASOPHILS % (AUTO) 1.3 % (0.2-1.0); EOSINOPHILS # (AUTO) 0.2 x10^3/uL (0.0-0.2); EOSINOPHILS % (AUTO) 1.8 % (0.9-2.9); HEMATOCRIT 35.8 % (36.0-47.0); HEMOGLOBIN 11.7 g/dL (12.0-16.0); LYMPHOCYTES # (AUTO) 2.1 X10^3/uL (1.3-2.9); LYMPHOCYTES % (AUTO) 22.8 % (21.0-51.0); MEAN CORPUSCULAR HEMOGLOBIN 29.1 pg (27.0-34.0); MEAN CORPUSCULAR HGB CONC 32.7 g/dL (33.0-35.0); MEAN CORPUSCULAR VOLUME 89.1 fL (80.0-100.0); MEAN PLATELET VOLUME 8.3 fL (7.4-11.0); MONOCYTES # (AUTO) 0.7 x10^3/uL (0.3-0.8); MONOCYTES % (AUTO) 7.7 % (0.0-13.0); NEUTROPHILS % (AUTO) 66.4 % (42.0-75.0); PLATELET COUNT 289 X10^3/uL (150.0-450.0); RED BLOOD COUNT 4.02 X10^6/uL (3.5-5.4); RED CELL DISTRIBUTION WIDTH 16.7 % (11.6-16.5); WHITE BLOOD COUNT 9.1 X10^3/uL (3.6-10.0)
[2019-04-10 05:32] LABS: ALANINE AMINOTRANSFERASE 25 Units/L (12-78); ALBUMIN 2.4 g/dL (3.4-5.0); ALKALINE PHOSPHATASE 76 Units/L (46-116); ASPARTATE AMINO TRANSFERASE 20 Units/L (15-37); BLOOD UREA NITROGEN 17 mg/dL (7-18); CALCIUM 8.4 mg/dL (8.5-10.1); CARBON DIOXIDE 28.6 mmol/L (21-32); CHLORIDE 102 mmol/L (98-107); COR CA(FOR HYPOALB) 9.7 mg/dL (8.5-10.1); COR NA(FOR HYPERGLY) 138 mmol/L (136-145); CREATININE 0.67 mg/dL (0.55-1.02); SODIUM 138 mmol/L (136-145); TOTAL PROTEIN 7.4 g/dL (6.4-8.2); eGFR NON BLACK RACES > 60 (>60)
[2019-04-10] MEDS ORDERED: ZESTRIL TAB 20 MG ONE (07:52)
[2019-04-10] MEDS: LEVAQUIN PREMIX IV 750 MG 750 MG/150 ML BAG IV SCH (09:11)
[2019-04-10] MEDS: LOVENOX INJ 40 MG SYR SC SCH (09:12)
[2019-04-10] MEDS: HYDROCHLOROTHIAZIDE 12.5 MG CAP PO SCH (09:13)
[2019-04-10] MEDS: COMPAZINE PO SCH ×2 (09:13→20:26)
[2019-04-10] MEDS: NEURONTIN CAP 300 MG PO SCH ×2 (09:13→20:16)
[2019-04-10] MEDS: ROBITUSSIN DM PO SCH ×4 (09:13→20:18)
[2019-04-10] MEDS: ZESTRIL TAB 20 MG PO SCH (09:14)
[2019-04-10] MEDS: PEPCID TAB 20 MG PO SCH ×2 (09:14→20:16)
[2019-04-10] MEDS: FOLIC ACID TAB 1 MG PO SCH (09:15)
[2019-04-10] MEDS: ZOLOFT PO SCH (09:15)
[2019-04-10] MEDS: PriLOSEC PO SCH (09:15)
[2019-04-10] MEDS: NICOTINE PATCH TD SCH ×2 (09:15→20:26)
--- NOTE | 2019-04-10 09:32 | CT ---
HISTORYPNEUMONIA AND SUSPICIOUS MASSSTUDYCHEST WITH CONCOMPARISONChest x-ray 04/07/2019TECHNIQUEMultiple axial images of the chest were obtained from the thoracic inlet to the upper abdomen after the administration of IV contrast. Dose reduction techniques including Automated Exposure Control (AEC) and adjustment of mA and kV were utilized.FINDINGSThe thyroid gland is unremarkable. There is mild calcified plaque throughout the aorta which is well opacified and normal caliber. There are moderate coronary artery calcifications. The pulmonary arteries are well opacified with no obvious filling defect. There is a small pericardial effusion along the great vessels with small lymph nodes in the AP window and pretracheal region measuring less than 1 cm. TThere is a moderate right pleural effusion layering posteriorly extending superiorly and laterally. The fluid extends superior laterally and into the apex anteriorly and appears loculated. There is Modic atelectasis and consolidation along the right lung base extending laterally and superiorly. No endobronchial or hilar lesion is seen. There is a 2.3 cm mass in the left adrenal gland and a 2.8 cm mass in the right adrenal gland. The liver and spleen are mildly enlarged. There is some hazy ground-glass opacities along the right upper lobe extending inferiorly with subsegmental linear opacities along the right lung base extending posteriorly and anteriorly with no pulmonary nodule or mass seen. There are moderate degenerative changes seen in the spine with no aggressive osseous lesion.IMPRESSIONHazy ground-glass infiltrate along the right upper lobe with moderate subsegmental atelectasis or infiltrates along the right lung base with which could represent multisegmental bronchopneumonia. No obvious masses seen. Recommend follow-up until complete resolution.Moderate right pleural effusion layering posteriorly with probable mild loculated fluid extending into the upper chest and apex which could be due to a parapneumonic effusion.Mildly atherosclerotic thoracic aorta with no aneurysm or dissection.Moderate coronary artery calcifications with small lymph nodes in the mediastinum which are not pathologic by size criteria.Small pericardial effusion.Bilateral adrenal masses which are indeterminate, recommend a follow-up limited CT scan of the adrenal glands or PET scan correlation.Mild hepatosplenomegaly.Electronically signed by: MARCO A PERSON (Apr 10, 2019 09:30:33)
[2019-04-10] MEDS: NS 1000 ML 1,000 ML IV SCH ×3 (09:34→20:28)
[2019-04-10] MEDS ORDERED: TORADOL 30 MG VIAL IM ONE (10:11)
--- NOTE | 2019-04-10 10:23 | PCM.PROG ---
Progress Note Progress Note for Day of Date of Exam: 04/10/19 Subjective Subjective: Pt is a 53 yo f admitted for possible overdose (d/t altered mental status) and pneumonia. This morning she is alert and oriented. She is complaining about pain musculoskeletal pain on left rib cage that kept her up at night. Yesterday had increased frequency of tramadol and added back home g abapentin. Today will give Toradol IM x1 and add lidocaine patch. BP stable, she has been titrated off supplemental O2, on room air. She is receiving IV Levaquin for pneumonia, sputum culture prelim positive H. influenzae. CT performed yesterday and was read this morning, showing moderate right pleural effusion layering posteriorly with probable mild loculated fluid extending into the upper chest and apex which could be due to a parapneumonic effusion. Will order CXR for morning, will need to consider surgery consult for thoracentesis or chest tube placement. WBC trending down and she has remained afebrile. Past Medical Family Social History Past Med/Fam/Surg Hx: No changes since H&P Allergies: Allergies Sulfa (Sulfonamide Antibiotics) Allergy (Verified 02/11/19 10:56) codeine Adverse Reaction (Verified 02/11/19 10:56) Review of Systems ROS: No change since H&P Vital Signs and I&O's Vital Signs: Temperature 97.7 F Pulse Rate [Apical] 115 Pulse Rate 72 Respiratory Rate 18 Blood Pressure [Right Arm] 111/65 Blood Pressure [Left Calf] 91/58 Blood Pressure [Left Arm] 142/82 Blood Pressure 162/79 O2 Sat by Pulse Oximetry 96 Intake and Output: Intake & Output 04/07/19 04/08/19 04/09/19 04/10/19 23:59 23:59 23:59 23:59 Intake Total 754 / 754 2763 / 2763 2357 / 2357 660 / 660 Output Total 3000 / 3000 2600 / 2600 2200 / 2200 300 / 300 Balance -2246 / -2246 163 / 163 157 / 157 360 / 360 Physical Exam Oriented: Person Eyes: Normal Ear: Normal Nose: Normal Throat: Normal Respiratory: Diminished Cardiovascular: Murmur : Normal Auscultation: Bowel Sounds: Normal Tenderness: Normal Skin: Normal Musculoskeletal: Normal Psychiatric: Normal Mood Description: Calm Affect: Anxious Speech Pattern: Clear and Appropriate Laboratory and Diagnostics Result Diagrams: 04/10/19 04:23 04/10/19 04:23 Labs: 04/07/19 18:10 Sputum - Expectorated Sputum Sputum Culture - Preliminary 04/07/19 18:10 Sputum - Expectorated Sputum - Final 04/07/19 17:33 Blood Blood Culture - Preliminary 04/07/19 17:33 Blood Blood Culture - Preliminary Laboratory WBC 9.1 X10^3/uL (3.6-10.0) 04/10/19 04:23 RBC 4.02 X10^6/uL (3.5-5.4) 04/10/19 04:23 Hgb 11.7 g/dL (12.0-16.0) L 04/10/19 04:23 Hct 35.8 % (36.0-47.0) L 04/10/19 04:23 MCV 89.1 fL (80.0-100.0) 04/10/19 04:23 MCH 29.1 pg (27.0-34.0) 04/10/19 04:23 MCHC 32.7 g/dL (33.0-35.0) L 04/10/19 04:23 RDW 16.7 % (11.6-16.5) H 04/10/19 04:23 Plt Count 289 X10^3/uL (150.0-450.0) 04/10/19 04:23 Plt Count Comment Adequate (ADEQUATE) 04/07/19 11:50 MPV 8.3 fL (7.4-11.0) 04/10/19 04:23 Neut % (Auto) 66.4 % (42.0-75.0) 04/10/19 04:23 Lymph % (Auto) 22.8 % (21.0-51.0) 04/10/19 04:23 [place] % (Auto) 7.7 % (0.0-13.0) 04/10/19 04:23 Eos % (Auto) 1.8 % (0.9-2.9) 04/10/19 04:23 Baso % (Auto) 1.3 % (0.2-1.0) H 04/10/19 04:23 Neut # (Auto) 6.0 x10^3/uL (2.2-4.8) H 04/10/19 04:23 Lymph # (Auto) 2.1 X10^3/uL (1.3-2.9) 04/10/19 04:23 [place] # (Auto) 0.7 x10^3/uL (0.3-0.8) 04/10/19 04:23 Eos # (Auto) 0.2 x10^3/uL (0.0-0.2) 04/10/19 04:23 Baso # (Auto) 0.1 X10^3/uL (0.0-0.1) 04/10/19 04:23 Absolute Nucleated RBC 0.0 /100WBC 04/10/19 04:23 Total Counted 100 04/07/19 11:50 Neutrophils % (Manual) 78 % (39-76) H 04/07/19 11:50 Band Neutrophils % 5 % (0-10) 04/07/19 11:50 Lymphocytes % (Manual) 14 % (13-43) 04/07/19 11:50 Monocytes % (Manual) 3 % (4-9) L 04/07/19 11:50 Plt Morphology Comment Normal (NORMAL) 04/07/19 11:50 RBC Morphology Normal (NORMAL) 04/07/19 11:50 PT 14.6 SECONDS (11.8-14.3) 04/07/19 16:16 INR Target Range - 04/07/19 16:16 INR 1.18 (0.8-1.3) 04/07/19 16:16 Sodium 138 mmol/L (136-145) 04/10/19 04:23 Corrected Sodium 138 mmol/L (136-145) 04/10/19 04:23 Potassium 3.8 mmol/L (3.5-5.1) 04/10/19 04:23 Chloride 102 mmol/L (98-107) 04/10/19 04:23 Carbon Dioxide 28.6 mmol/L (21-32) 04/10/19 04:23 BUN 17 mg/dL (7-18) 04/10/19 04:23 Creatinine 0.67 mg/dL (0.55-1.02) 04/10/19 04:23 Est GFR (MDRD) Af Amer > 60 (>60) 04/10/19 04:23 Est GFR (MDRD) Non-Af > 60 (>60) 04/10/19 04:23 Glucose 119 mg/dL (65-99) H 04/10/19 04:23 POC Glucose (mg/dL) 115 mg/dL (65-99) H 04/10/19 05:25 Calcium 8.4 mg/dL (8.5-10.1) L 04/10/19 04:23 Corrected Calcium 9.7 mg/dL (8.5-10.1) 04/10/19 04:23 Magnesium 2.0 mg/dL (1.7-2.9) 04/07/19 11:50 Total Bilirubin 0.30 mg/dL (0.2-1.0) 04/10/19 04:23 AST 20 Units/L (15-37) 04/10/19 04:23 ALT 25 Units/L (12-78) 04/10/19 04:23 Alkaline Phosphatase 76 Units/L (46-116) 04/10/19 04:23 Creatine Kinase 380 Units/L (26-192) H 04/08/19 05:18 CK-MB (CK-2) 2.2 ng/mL (0-4.0) 04/08/19 05:18 CK/CKMB % Calc 0.6 % (<4) 04/08/19 05:18 Troponin I < 0.02 ng/mL (0-1.5) 04/08/19 05:18 Total Protein 7.4 g/dL (6.4-8.2) 04/10/19 04:23 Albumin 2.4 g/dL (3.4-5.0) L 04/10/19 04:23 Globulin 5.0 g/dL (2.5-4.5) H 04/10/19 04:23 Albumin/Globulin Ratio 0.5 Ratio (1.1-2.1) L 04/10/19 04:23 Specimen Type Catherized urine 04/07/19 14:13 Urine Color Yellow (YELLOW) 04/07/19 14:13 Urine Appearance Cloudy (CLEAR) 04/07/19 14:13 Urine pH 5.0 (5.0 - 8.0) 04/07/19 14:13 Ur Specific [place] 1.020 (1.000-1.030) 04/07/19 14:13 Urine Protein 2+ (NEGATIVE) 04/07/19 14:13 Urine Glucose (UA) Negative (NEGATIVE) 04/07/19 14:13 Urine Ketones Negative (NEGATIVE) 04/07/19 14:13 Urine Occult Blood 1+ (NEGATIVE) 04/07/19 14:13 Urine Nitrite Negative (NEGATIVE) 04/07/19 14:13 Urine Bilirubin Negative (NEGATIVE) 04/07/19 14:13 Urine Urobilinogen Normal (NORMAL) 04/07/19 14:13 Ur Leukocyte Esterase Negative (NEGATIVE) 04/07/19 14:13 Urine RBC 0-2 /HPF (0-3) 04/07/19 14:13 Urine WBC None seen /HPF (0-5) 04/07/19 14:13 Ur Squamous Epith Cells Rare /HPF (NEGATIVE) 04/07/19 14:13 Amorphous Sediment 1+ /HPF (NEGATIVE) 04/07/19 14:13 Urine Bacteria Negative /HPF (NEGATIVE) 04/07/19 14:13 Urine Mucus Few /HPF (NEGATIVE) 04/07/19 14:13 Ur Culture Indicated? No/not indicated 04/07/19 14:13 Salicylates 4.1 mg/dL (2.8-20) 04/07/19 11:50 Urine Opiates Screen Positive (NEG=<300) A 04/07/19 14:13 Urine Methadone Screen Negative (NEG=<300) 04/07/19 14:13 Acetaminophen 0.0 ug/mL (10-30) L 04/07/19 11:50 Ur Barbiturates Screen Negative (NEG=<200) 04/07/19 14:13 Ur Phencyclidine Scrn Negative (NEG=<25) 04/07/19 14:13 Ur Amphetamines Screen Positive (NEG=<1000) A 04/07/19 14:13 U Benzodiazepines Scrn Positive (NEG=<200) A 04/07/19 14:13 Urine Cocaine Screen Negative (NEG=<300) 04/07/19 14:13 U Marijuana (THC) Screen Positive (NEG=<50) A 04/07/19 14:13 Ethyl Alcohol mg/dL < 3 mg/dL (0-19.9) 04/07/19 11:50 Plan (1) Pneumonia: Status: Acute Plan: IV Levaquin SputumCX:H. influenzae. 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
[2019-04-10] MEDS: CYMBALTA PO SCH (10:34)
[2019-04-10] MEDS ORDERED: ZOFRAN INJ 4 MG VIAL ONE (11:19)
[2019-04-10] MEDS: LIDODERM 5% PATCH TD PRN (11:30)
--- NOTE | 2019-04-10 16:46 | RAD ---
CERVICAL SPINE, AP/LATHISTORY: patient fell. neck painStudy: 5 views of the cervical spine.Comparison:NoneFindings:Examination is near nondiagnostic secondary to underpenetration. Multilevel degenerative disc disease. No definite large fractures.IMPRESSION:1. Examination is essentially nondiagnostic secondary underpenetration.Electronically signed by: CHARLOTTE QUINTANILLA (Apr 10, 2019 16:45:12)
[2019-04-10] MEDS: NORCO 10/325 TAB PO PRN (18:20)
[2019-04-10] MEDS: LIPITOR TAB 10 MG PO SCH (20:17)
[2019-04-10] MEDS ORDERED: NORCO 10/325 TAB PO ONE (22:08)
[2019-04-11] MEDS: XOPENEX 1.25 MG/3 ML NEBULE NEB SCH ×4 (00:33→20:28)
[2019-04-11] MEDS: NS 1000 ML 1,000 ML IV SCH ×3 (01:03→20:28)
[2019-04-11] MEDS ORDERED: COLACE CAP 100 MG PO ONE (01:06)
[2019-04-11] MEDS ORDERED: MILK OF MAGNESIA ONE (01:06)
[2019-04-11] MEDS: COLACE CAP 100 MG PO PRN ×2 (01:13→23:22)
[2019-04-11] MEDS: MILK OF MAGNESIA PO PRN ×2 (01:13→23:22)
[2019-04-11] MEDS: TYLENOL 325 MG TAB PO PRN ×2 (03:52→16:42)
[2019-04-11 05:33] LABS: BASOPHILS # (AUTO) 0.1 X10^3/uL (0.0-0.1); EOSINOPHILS # (AUTO) 0.3 x10^3/uL (0.0-0.2); EOSINOPHILS % (AUTO) 3.6 % (0.9-2.9); HEMATOCRIT 35.1 % (36.0-47.0); HEMOGLOBIN 11.6 g/dL (12.0-16.0); LYMPHOCYTES # (AUTO) 1.9 X10^3/uL (1.3-2.9); LYMPHOCYTES % (AUTO) 24.8 % (21.0-51.0); MEAN CORPUSCULAR HEMOGLOBIN 29.8 pg (27.0-34.0); MEAN CORPUSCULAR VOLUME 90.5 fL (80.0-100.0); MEAN PLATELET VOLUME 8.8 fL (7.4-11.0); MONOCYTES # (AUTO) 0.7 x10^3/uL (0.3-0.8); MONOCYTES % (AUTO) 8.9 % (0.0-13.0); NEUTROPHILS # (AUTO) 4.8 x10^3/uL (2.2-4.8); NEUTROPHILS % (AUTO) 61.7 % (42.0-75.0); PLATELET COUNT 257 X10^3/uL (150.0-450.0); RED BLOOD COUNT 3.88 X10^6/uL (3.5-5.4); RED CELL DISTRIBUTION WIDTH 15.9 % (11.6-16.5); WHITE BLOOD COUNT 7.8 X10^3/uL (3.6-10.0)
[2019-04-11] MEDS: NORCO 10/325 TAB PO PRN ×4 (05:41→23:22)
[2019-04-11] MEDS: XANAX PO PRN ×3 (05:41→23:23)
[2019-04-11 05:42] LABS: ALANINE AMINOTRANSFERASE 26 Units/L (12-78); ALBUMIN 2.4 g/dL (3.4-5.0); ALKALINE PHOSPHATASE 77 Units/L (46-116); ASPARTATE AMINO TRANSFERASE 21 Units/L (15-37); BLOOD UREA NITROGEN 13 mg/dL (7-18); CALCIUM 8.2 mg/dL (8.5-10.1); CARBON DIOXIDE 29.3 mmol/L (21-32); CHLORIDE 102 mmol/L (98-107); COR CA(FOR HYPOALB) 9.5 mg/dL (8.5-10.1); COR NA(FOR HYPERGLY) 140 mmol/L (136-145); SODIUM 139 mmol/L (136-145); TOTAL PROTEIN 6.8 g/dL (6.4-8.2); eGFR NON BLACK RACES > 60 (>60)
--- NOTE | 2019-04-11 06:31 | RAD ---
HISTORYPneumoniaSTUDYCHEST, PA/LAT [id number]/26/2019 plain-film, CT chest 04/10/2019FINDINGSThe heart remains enlarged. No congestive heart failure is noted. Hazy right upper lobe infiltrate is unchanged. Right pleural effusion is unchanged and may be loculated. The effusion obscures the right lower lobe. The right middle lobe appears clear. The left lung is clear.IMPRESSIONContinued cardiomegaly without congestive heart failureNo change hazy right upper lobe infiltrateRight pleural effusion unchanged likely partially loculatedElectronically signed by: GAYLE HAMMOND (Apr 11, 2019 06:29:33)
[2019-04-11] MEDS ORDERED: LASIX IVP ONE (08:40)
[2019-04-11] MEDS ORDERED: MUCOMYST 20% 200 MG/ML NEB SCH (09:00)
[2019-04-11] MEDS ORDERED: ZESTRIL TAB 20 MG ONE (09:12)
[2019-04-11] MEDS: LEVAQUIN PREMIX IV 750 MG 750 MG/150 ML BAG IV SCH (09:16)
[2019-04-11] MEDS: FOLIC ACID TAB 1 MG PO SCH (09:16)
[2019-04-11] MEDS: COMPAZINE PO SCH ×2 (09:17→20:27)
[2019-04-11] MEDS: HYDROCHLOROTHIAZIDE 12.5 MG CAP PO SCH (09:17)
[2019-04-11] MEDS: ZOLOFT PO SCH (09:17)
[2019-04-11] MEDS: PriLOSEC PO SCH (09:18)
[2019-04-11] MEDS: PEPCID TAB 20 MG PO SCH ×2 (09:18→20:27)
[2019-04-11] MEDS: ZESTRIL TAB 20 MG PO SCH (09:18)
[2019-04-11] MEDS: NICOTINE PATCH TD SCH (09:20)
[2019-04-11] MEDS: LOVENOX INJ 40 MG SYR SC SCH (09:20)
[2019-04-11] MEDS: PULMICORT NEB TX 0.5 MG NEB SCH ×3 (09:20→20:28)
[2019-04-11] MEDS: CYMBALTA PO SCH (09:31)
[2019-04-11] MEDS: ROBITUSSIN DM PO SCH ×4 (09:31→20:28)
[2019-04-11] MEDS: LIDODERM 5% PATCH TD PRN (09:35)
[2019-04-11] MEDS: MUCOMYST 20% 200 MG/ML NEB SCH ×2 (12:06→17:20)
[2019-04-11] MEDS: NEURONTIN CAP 300 MG PO SCH ×2 (12:09→20:27)
[2019-04-11] MEDS: LIPITOR TAB 10 MG PO SCH (20:28)
[2019-04-12] MEDS: TYLENOL 325 MG TAB PO PRN (00:40)
[2019-04-12] MEDS: XOPENEX 1.25 MG/3 ML NEBULE NEB SCH ×2 (01:06→05:42)
[2019-04-12] MEDS: MUCOMYST 20% 200 MG/ML NEB SCH ×2 (01:06→05:43)
[2019-04-12] MEDS ORDERED: AMBIEN PO PRN (02:13)
[2019-04-12] MEDS ORDERED: AMBIEN ONE (02:20)
[2019-04-12] MEDS: NS 1000 ML 1,000 ML IV SCH (04:23)
[2019-04-12] MEDS: NEURONTIN CAP 300 MG PO SCH (04:23)
[2019-04-12] MEDS: NORCO 10/325 TAB PO PRN (04:53)
[2019-04-12] MEDS: XANAX PO PRN (04:54)
[2019-04-12 06:04] LABS: BASOPHILS % (AUTO) 0.4 % (0.2-1.0); EOSINOPHILS # (AUTO) 0.2 x10^3/uL (0.0-0.2); EOSINOPHILS % (AUTO) 2.1 % (0.9-2.9); HEMATOCRIT 37.5 % (36.0-47.0); HEMOGLOBIN 12.6 g/dL (12.0-16.0); LYMPHOCYTES # (AUTO) 2.2 X10^3/uL (1.3-2.9); LYMPHOCYTES % (AUTO) 22.1 % (21.0-51.0); MEAN CORPUSCULAR HEMOGLOBIN 29.7 pg (27.0-34.0); MEAN CORPUSCULAR HGB CONC 33.6 g/dL (33.0-35.0); MEAN CORPUSCULAR VOLUME 88.3 fL (80.0-100.0); MEAN PLATELET VOLUME 8.4 fL (7.4-11.0); MONOCYTES # (AUTO) 0.8 x10^3/uL (0.3-0.8); MONOCYTES % (AUTO) 8.6 % (0.0-13.0); NEUTROPHILS # (AUTO) 6.6 x10^3/uL (2.2-4.8); NEUTROPHILS % (AUTO) 66.8 % (42.0-75.0); PLATELET COUNT 292 X10^3/uL (150.0-450.0); RED BLOOD COUNT 4.25 X10^6/uL (3.5-5.4); WHITE BLOOD COUNT 9.8 X10^3/uL (3.6-10.0)
[2019-04-12 06:05] LABS: ALANINE AMINOTRANSFERASE 23 Units/L (12-78); ALBUMIN 2.7 g/dL (3.4-5.0); ALKALINE PHOSPHATASE 78 Units/L (46-116); ASPARTATE AMINO TRANSFERASE 16 Units/L (15-37); BLOOD UREA NITROGEN 11 mg/dL (7-18); CALCIUM 8.6 mg/dL (8.5-10.1); CARBON DIOXIDE 30.4 mmol/L (21-32); CHLORIDE 98 mmol/L (98-107); COR CA(FOR HYPOALB) 9.6 mg/dL (8.5-10.1); COR NA(FOR HYPERGLY) 137 mmol/L (136-145); CREATININE 0.72 mg/dL (0.55-1.02); SODIUM 136 mmol/L (136-145); TOTAL PROTEIN 7.4 g/dL (6.4-8.2); eGFR NON BLACK RACES > 60 (>60)
[2019-04-12] MEDS ORDERED: K-RIDER 10 MEQ/NS 100 ML 10 MEQ/100 ML BAG IV PRN (06:22)
[2019-04-12] MEDS ORDERED: KLOR-CON PO PRN (06:22)
[2019-04-12] MEDS ORDERED: POTASSIUM CHL 40 MEQ/NS 0.45% 500 ML IV PRN (06:22)
[2019-04-12] MEDS ORDERED: POTASSIUM CHLORIDE LIQ 20 MEQ UDC PO PRN (06:22)
[2019-04-12] MEDS ORDERED: POTASSIUM CHL 60 MEQ/NS 0.45% 500 ML IV PRN (06:22)
[2019-04-12] MEDS ORDERED: MICRO K EXTEN CAP 10 MEQ PO PRN (06:22)
[2019-04-12] MEDS ORDERED: MAGNESIUM SULFATE 1 GRAM/100 mL PREMIX 1 GM/100 ML BAG IV PRN (06:22)
[2019-04-12] MEDS ORDERED: K-DUR TAB 20 MEQ PO PRN (06:22)
[2019-04-12] MEDS ORDERED: ZESTRIL TAB 20 MG ONE (08:29)
[2019-04-12] MEDS ORDERED: XANAX PO ONE (08:37)
[2019-04-12] MEDS ORDERED: TORADOL 30 MG VIAL IVP ONE (08:44)
[2019-04-12] MEDS: NICOTINE PATCH TD SCH (08:49)
[2019-04-12] MEDS: PriLOSEC PO SCH (08:49)
[2019-04-12] MEDS: HYDROCHLOROTHIAZIDE 12.5 MG CAP PO SCH (08:50)
[2019-04-12] MEDS: ZOLOFT PO SCH (08:50)
[2019-04-12] MEDS: ZESTRIL TAB 20 MG PO SCH (08:51)
[2019-04-12] MEDS: PEPCID TAB 20 MG PO SCH (08:51)
[2019-04-12] MEDS: FOLIC ACID TAB 1 MG PO SCH (08:51)
[2019-04-12] MEDS: CYMBALTA PO SCH ×2 (08:51→11:31)
[2019-04-12] MEDS: COMPAZINE PO SCH (08:51)
[2019-04-12] MEDS: ROBITUSSIN DM PO SCH (08:51)
[2019-04-12] MEDS: LOVENOX INJ 40 MG SYR SC SCH (08:52)
[2019-04-12] MEDS: LEVAQUIN PREMIX IV 750 MG 750 MG/150 ML BAG IV SCH (08:52)
[2019-04-12] MEDS: PULMICORT NEB TX 0.5 MG NEB SCH (09:42)
[2019-04-12 11:29] VITALS: BP 150/88
== END 2019-04-12 11:20 | disposition home or self-care (01) | DRG 194 ==
LOC: SUPCPDRO → ER 11:07 → ICU 17:58
PROVIDERS: ADMIT Internal Medicine; ATTEND Internal Medicine
CPT/HCPCS: 36415; 70450; 71010; 71020; 71045; 71046; 71260; 72040; 74176; 80053; 80307; 80320; 81001; 82550; 82553; 83735; 84484; 85025; 85610; 87040; 87070; 87077; 87185; 87186; 87205; 93005; 93306; 94640; 96365; 96374; 97162; 97167; 97530; 97535; 99285; A4222; G0434; G6038; G6039; G6040; J1650; J1885; J1940; J1956; J2310; J2405; J3490; J7030; J7040; J7626